=== PATIENT | male | born 1960 | race Caucasian/White ===

== ENCOUNTER 2024-09-10 06:50 | Observation (INO) ==
--- NOTE | 2024-07-16 11:00 | PAT Medication Instructions ---
Medication Instructions Date of Service July 16, 2024 Home Medications amlodipine 10 mg tablet 10 mg PO QAM aspirin 81 mg tablet,delayed release (Aspir-) 81 mg PO QAM lisinopril 40 mg tablet 40 mg PO QAM metformin 500 mg tablet 1,000 mg PO QAM metoprolol succinate 50 mg tablet,extended release 24 hr 75 mg PO QAM multivitamin 1 tab PO QAM acetaminophen 500 mg tablet 1,000 mg PO BID atorvastatin 20 mg tablet 20 mg PO UD empagliflozin 10 mg tablet (Jardiance) 10 mg PO QAM furosemide 20 mg tablet 20 mg PO UD STOP 3 days before surgery empagliflozin 10 mg tablet (Jardiance) 10 mg PO QAM Continue as directed atorvastatin 20 mg tablet 20 mg PO UD ASK your prescriber and surgeon aspirin 81 mg tablet,delayed release (Aspir-) 81 mg PO QAM DO NOT take the morning of surgery lisinopril 40 mg tablet 40 mg PO QAM metformin 500 mg tablet 1,000 mg PO QAM multivitamin 1 tab PO QAM furosemide 20 mg tablet 20 mg PO UD Take morning of surgery With a small sip of water, OTHERWISE NOTHING TO EAT OR DRINK AFTER MIDNIGHT: amlodipine 10 mg tablet 10 mg PO QAM metoprolol succinate 50 mg tablet,extended release 24 hr 75 mg PO QAM acetaminophen 500 mg tablet 1,000 mg PO BID Take evening before surgery acetaminophen 500 mg tablet 1,000 mg PO BID Other Notes If you have any questions please call us at [phone] or [phone] or [phone] or [phone]
--- NOTE | 2024-07-26 12:49 | Anesthesiology Consultation ---
Date of Service July 26, 2024 Assessment & Plan (1) Encounter for pre-operative examination: - PCP clearance regarding creatinine elevation at 1.4. Optimization form to be sent to Dr. Jemal Miller. - facial hair: patient states is agreeable to trimming young, he notes will be done playing avocadostore at local half-way facilities/for grandchildren by surgery date. - Outpatient joint assessment: Patient is currently scheduled for inpatient pathway. If re-evaluated and patient/surgeon requests outpatient pathway, patient is not ideal candidate for outpatient joint program from anesthesia standpoint. Chart Review Chart Review: Pending: Refer to Additional Notes / Consult section and Patient seen in Pre Admission Testing Teaching & Discussion Pre-Anesthesia Teaching/Discussion Notes: Instructed NPO after midnight before surgery, except medications with 15 cc of water. Medication instructions provided according to the PAT guidelines. History Surgery Operation Date: 09/10/24 12:10 Proposed Procedures p Right Reverse Total Shoulder Arthroplasty - Ian Swain, Height/Weight Height: 5 ft 8 in Weight: 126.2 kg Allergies Allergy/AdvReac Type Severity Reaction Status Date / Time No Known Allergies Allergy Verified 10/29/22 07:34 Medications Home Medications Medication Instructions Recorded Confirmed Last Taken amlodipine 10 mg tablet 10 mg PO QAM 09/15/19 07/15/24 10/17/19 aspirin 81 mg tablet,delayed 81 mg PO QAM 09/15/19 07/15/24 10/17/19 release (Aspir-) lisinopril 40 mg tablet 40 mg PO QAM 09/15/19 07/15/24 10/17/19 metformin 500 mg tablet 1,000 mg PO QAM 09/15/19 07/15/24 10/17/19 metoprolol succinate 50 mg 75 mg PO QAM 09/15/19 07/15/24 10/17/19 tablet,extended release 24 hr multivitamin 1 tab PO QAM 09/15/19 07/15/24 10/17/19 acetaminophen 500 mg tablet 1,000 mg PO BID 10/29/22 07/15/24 Unknown atorvastatin 20 mg tablet 20 mg PO UD 07/15/24 07/15/24 Unknown empagliflozin 10 mg tablet 10 mg PO QAM 07/15/24 07/15/24 Unknown (Jardiance) furosemide 20 mg tablet 20 mg PO UD 07/15/24 07/15/24 Unknown Past Medical History Medical History (Updated 07/26/24 @ 12:55 by Britney Foster PA-C) Aortic aneurysm hx- s/p repair 12/2022 CAD (coronary artery disease) x 2 stents 12/2022 Dyslipidemia Hypertension controlled, stable per pt Kidney stones Hx, passed without intervention Morbid obesity Osteoarthritis Prediabetes Renal cyst monitoring Sleep apnea CPAP (non-compliant) Patient denies h/o stroke, seizures, heart failure, blood clots/DVTs or blood transfusions. Exercise / Class Metabolic Activity II 4-5 Yardwork/Stairs/Walk up hill (denies chest discomfort or shortness of breath walking up a hill) Past Family History Family History Mother Diabetes Past Surgical History Surgical History History of cataract surgery B/L History of colonoscopy History of tonsillectomy Hx of aortic aneurysm repair (12/2022) Katerine Moran Hx of cardiac catheterization (12/2022) x 2 stents; AMRIK Moran --follows w/ Dr Figueroa Hx of shoulder surgery Right RCR Past Anesthesia History No Hx of Anesthesia Complications and No Family Hx of Anesthesia Complications History of PONV No Hx of PONV and No Hx of Motion Sickness Social History Smoking Status: Never smoker tobacco type: smokeless tobacco Do You Dip or Chew Tobacco: Yes (advised none DOS) Hx Alcohol Use: Yes Alcohol type: beer alcohol intake frequency: a few times a month Hx Substance Use: No substance use type: does not use Review of Systems Patient denies chest pain, shortness of breath, dyspnea on exertion, reflux, fever, chills, cough, wheezing, or palpitations. Physical Exam Vital Signs Vitals BP 146/89 P 68 TEMP 98.1 SP02 94% on RA RESP 18 Physical Patient resting comfortably in chair in no acute distress, alert and oriented, responding appropriately throughout visit Full cervical extension range of motion without pain TMD 3.5 finger breadths Mallampati Score 3 Dentition: intact, denies chipped or loose teeth, caps/crowns, implants or bridges Lungs: normal respiratory effort. Good air movement, clear throughout to auscultation, no adventitious breath sounds Cardiac: regular rate and rhythm, no murmurs noted Carotid arteries: negative bruit bilat Lab Results Anesthesia Preop Results Results Anesthesia Widget: WBC 9.82 K/ul (4.8-10.8) 07/26/24 Hgb 14.4 g/dl (14.0-18.0) 07/26/24 Hct 43.1 % (42.0-52.0) 07/26/24 Plt 228 K/uL (130-400) 07/26/24 Na 140 mmol/L (136-145) 07/26/24 K 4.1 mmol/L (3.5-5.1) 07/26/24 Cl 105 mmol/L (98-107) 07/26/24 CO2 27 mmol/L (21-32) 07/26/24 BUN 24 mg/dl (6-23) H 07/26/24 Creat 1.41 mg/dl (0.6-1.4) H 07/26/24 Glucose Level 111 mg/dl (70-99(Fasting)) H 07/26/24 PT 10.8 Seconds (9.0-12.0) 07/26/24 PTT 27 Seconds (21-31) 07/26/24 INR 1.0 (0.9-1.1) 07/26/24 HA1c 6.4 % (4.5-5.6) H 07/26/24 Blood Type O Positive 07/26/24 Antibody Screen NEGATIVE 07/26/24 Testing Electrocardiogram Date: 07/26/24 NSR, rate 62 bpm Minimal voltage criteria for LVH, may be normal variant Inferior infarct, age undetermined No significant change vs 11/05/22 EKG Echocardiogram Date: 06/16/23 EF 60-64% Normal LV wall motion Moderate cLVH Mild aortic valve regurgitation Evidence of prior aortic root replacement Mildly enlarged aortic root 4.0 cm Proximal ascending thoracic aorta mildly enlarged 4.3 cm Cardiac Catheterization Date: 12/04/22 Left main: no evidence of disease LAD: 80% lesion Cx: 80% lesion RCA: mildly diseased Other Testing Chest CT 02/16/24 A few stable lung nodules Redemonstration of postoperative changes from ascending aortic aneurysm repair with fluid collection around the graft. Overall caliber has minimally decreased when compared to 06/16/2023 CT Left renal high-density lesion
--- NOTE | 2024-09-08 17:03 | History & Physical Report ---
Date of Service September 08, 2024 Assessment & Plan (1) Rotator cuff tear arthropathy of right shoulder: We will proceed with a right reverse shoulder arthroplasty. Postoperatively he will be placed in a sling and kept overnight in the hospital for postop medical management. He plans to use energy physical therapy upon discharge. History of Present Illness Chief Complaint: Cuff tear arthropathy of the right shoulder. Primary Care Provider: Jemal Miller MD Titi is a pleasant 63-year-old male who underwent a rotator cuff repair at another institution in 2013. He initially did okay, but his shoulder has been much worse recently. He works as a liang. He was scheduled to have a reverse shoulder replacement by a year and a half ago, but he was found to have an aneurysm preoperatively. He has since had that addressed. Unfortunately, his shoulder continues to bother him. He is in better health. After failed conservative treatment, he has elected to proceed with a right reverse shoulder arthroplasty. Allergies Allergy/AdvReac Type Severity Reaction Status Date / Time No Known Allergies Allergy Verified 10/29/22 07:34 Home Medications Medication Instructions Recorded Confirmed Type amlodipine 10 mg tablet 10 mg PO QAM 09/15/19 07/15/24 History aspirin 81 mg tablet,delayed 81 mg PO QAM 09/15/19 07/15/24 History release (Aspir-) lisinopril 40 mg tablet 40 mg PO QAM 09/15/19 07/15/24 History metformin 500 mg tablet 1,000 mg PO QAM 09/15/19 07/15/24 History metoprolol succinate 50 mg 75 mg PO QAM 09/15/19 07/15/24 History tablet,extended release 24 hr multivitamin 1 tab PO QAM 09/15/19 07/15/24 History acetaminophen 500 mg tablet 1,000 mg PO BID 10/29/22 07/15/24 History atorvastatin 20 mg tablet 20 mg PO UD 07/15/24 07/15/24 History empagliflozin 10 mg tablet 10 mg PO QAM 07/15/24 07/15/24 History (Jardiance) furosemide 20 mg tablet 20 mg PO UD 07/15/24 07/15/24 History chlorthalidone 25 mg tablet 12.5 mg PO QAM 08/13/24 08/13/24 History Past Med/Surg History Problem List Rotator cuff tear arthropathy of right shoulder Encounter for pre-operative examination Medical History CAD (coronary artery disease) x 2 stents 12/2022 Dyslipidemia Prediabetes Renal cyst monitoring Aortic aneurysm hx- s/p repair 12/2022 Morbid obesity Osteoarthritis Kidney stones Hx, passed without intervention Hypertension controlled, stable per pt Sleep apnea CPAP (non-compliant) Surgical History Hx of cardiac catheterization (12/2022) x 2 stents; AMRIK Moran --follows w/ Dr Figueroa Hx of aortic aneurysm repair (12/2022) AMRIK Moran History of cataract surgery B/L Hx of shoulder surgery Right RCR History of colonoscopy History of tonsillectomy Family History Mother Diabetes Social History Smoking Status: Never smoker Tobacco Type: Smokeless Tobacco (Dip or Chew) Second Hand Exposure: No; Do You Dip or Chew Tobacco: Yes (advised none DOS); Tobacco Cessation Education Requested by Patient: No Hx Alcohol Use: Yes Alcohol type: beer Hx Substance Use: No Preferred Language: Monegasque Communication Ability: Effective [employer] Required: No Beliefs That Will Affect Care: None Current Living Situation: Family current occupation: [employer] Other Information That Helps Us Care for You: No Feels Safe at Home: Yes Safety Concerns: Feels Safe At This Time Assistive Devices: CPAP and Glasses Review of Systems All systems reviewed & are unremarkable except as noted in HPI & below. Physical Exam On physical examination of the right shoulder, he has decreased range of motion and weakness throughout.. Constitutional WD/WN, vitals as above Eyes PERRL, conjunctivae normal, anicteric sclerae ENMT external ear and nose normal, oropharynx normal Neck trachea midline, no thyromegaly Respiratory normal respiratory effort Cardiovascular RRR, no murmur, no edema Gastrointestinal (Abdomen) normal bowel sounds, soft, nontender, no hepatosplenomegaly Psychiatric A+Ox3, euthymic affect Results & Data Results & Data Laboratory Results . Diagnostic Findings X-rays of the right shoulder show advanced osteoarthritis with joint space narrowing, osteophyte formation, and [id number] articulation.. PG Care Time/CCT Total # of Minutes Spent Total Time Spent with Patient: Total time spent is greater than 50% in coordination of care (as documented) at patient's floor/unit and/or counseling patient: Coding Level of Care Code None Diagnoses Rotator cuff tear arthropathy of right shoulder M75.101; M12.811
[~2024-09-10 06:50] MED LIST: BUPIVACAINE 0.5 % 5 MG/1 ML PF 10ML VIAL ONE
[2024-09-10] MEDS ORDERED: fentaNYL citrate PF 100 MCG/2 ML VIAL ONE (08:12)
[2024-09-10] MEDS ORDERED: ONDANSETRON INJ 2 MG/ML 2 ML VIAL ONE (08:12)
[2024-09-10] MEDS ORDERED: MIDAZOLAM HCL 1 MG/ML 2ML VIAL ONE (08:12)
[2024-09-10] MEDS ORDERED: PROPOFOL IV EMULSION 10 MG/ML 20 ML VIAL IV ONE (08:12)
[2024-09-10] MEDS ORDERED: DEXAMETHASONE SOD INJ 4 MG/ML VIAL ONE (08:12)
[2024-09-10] MEDS: ACETAMINOPHEN 500 MG TAB PO SCH ×2 (08:12→20:17)
[2024-09-10] MEDS ORDERED: LIDOCAINE 2% 2 ML VIAL/AMP(20MG/ML) INFIL ONE (08:13)
[2024-09-10] MEDS: GABAPENTIN 300 MG CAP PO SCH (08:13)
[2024-09-10] MEDS: FAMOTIDINE 20 MG TAB PO SCH (08:13)
--- NOTE | 2024-09-10 08:20 | History & Physical Bridge Note ---
Date of Service September 10, 2024 History & Physical Bridge Note I have examined the patient, reviewed the History & Physical and in the interval since the performance of the History & Physical I have noted the following changes of clinical significance: no changes noted
[2024-09-10] MEDS: dexAMETHasone**PF** 10 MG/ML VIAL IV SCH (08:27)
[2024-09-10] MEDS ORDERED: ATROPINE SULFATE 0.1 MG/ML 10ML SYR IV PRN (08:34)
[2024-09-10] MEDS ORDERED: ePHEDrine sulfate 50 MG/ML AMP IV PRN (08:34)
[2024-09-10] MEDS ORDERED: HYDROmorphone INJ 1 MG/ML SYRINGE IV PRN (08:34)
[2024-09-10] MEDS ORDERED: fentaNYL citrate PF 100 MCG/2 ML VIAL IV PRN (08:34)
[2024-09-10] MEDS ORDERED: ONDANSETRON INJ 2 MG/ML 2 ML VIAL IV PRN ×2 (08:34→12:54)
[2024-09-10] MEDS: SODIUM CHLORIDE 0.9% 1,000 ML IV SCH (08:54)
[2024-09-10] MEDS: TRANEXAMIC ACID 1,000 MG **IV Pre-op IV SCH (09:02)
[2024-09-10] MEDS: ceFAZolin 2000MG 2,000 MG/15 ML SYR IV SCH ×2 (09:12→16:45)
[2024-09-10] MEDS: LR 60ML/HR IV SCH (09:13)
[2024-09-10] MEDS: LR 15ML/HR IV SCH (09:13)
[2024-09-10] MEDS ORDERED: ePHEDrine sulfate 50 MG/5 ML SYR ONE (09:38)
[2024-09-10] MEDS: ROPIV 0.5% 246mg, Ketorolac 30mg, EPINEPHrine 0.5mg in NSS INFIL SCH (10:20)
[2024-09-10] MEDS: ORTHO JOINT ANESTHETIC ONE (10:20)
[2024-09-10] MEDS: TRANEXAMIC ACID 1,000 MG **IV Intra-op IV SCH (10:32)
[2024-09-10] MEDS ORDERED: SUGAMMADEX SODIUM 200 MG/2 ML VIAL IV ONE (10:33)
--- NOTE | 2024-09-10 10:45 | Operative Report ---
PG Post Operative Report Pre & Post Diagnosis Operation Date: 09/10/24 09:00 Pre-Op Diagnosis: Cuff tear arthropathy of the right shoulder with tendinopathy long head of biceps tendon Post-Op Diagnosis: Cuff tear arthropathy of the right shoulder with tendinopathy long head of the biceps tendon I identified the patient and participated in the time-out.: Yes Procedure Operation Date: 09/10/24 09:00 Actual Procedures p Right Reverse Total Shoulder Arthroplasty(Right) with open biceps tenodesis as a distinct and separate procedure (modifier 59)- Ian Swain DO Surgeon Ian Swain DO Skip Miner Blasting None Estimated Blood Loss 200 Findings Consistent with Post-Op Diagnosis Specimens Right humeral head Description of Procedure A CPT code modifier 59: The long head of the biceps tendon was enlarged and inflamed consistent with tendinopathy. A tenodesis was opted. This was a separate and distinct portion of the procedure. For these reasons, a CPT code modifier 59 will be added to this case. Implants used: I used a [employer] Comprehensive reverse total shoulder arthroplasty system with a size 14 press fit micro humeral stem, a +3 offset humeral tray and a standard humeral bearing, a 25 mm large augment baseplate with a 6.5 mm central screw and superior and inferior locking screws, and a size 40 mm eccentric glenosphere. Titi arrived at [facility] for the above procedure. He was seen in the preoperative holding area and the operative extremity was identified and signed. He was given a preoperative antibiotic, TXA, and an interscalene nerve block. He was taken back to the operating room, laid on table in supine position, and put under general anesthesia. He was then put into the beachchair position. The shoulder was then prepped and draped in sterile fashion. A timeout was done and the patient and the operative extremity was properly identified. A deltopectoral approach was used. Dissection was taken down through the fascia and the deltoid was retracted laterally and the conjoined tendon was retracted medially. The anterior shoulder was exposed. The biceps groove was opened up and the biceps tendon was examined extensively. The biceps tendon demonstrated enlargement and inflammatory changes consistent with longstanding inflammation in the context of osteoarthritis and cuff arthropathy. The long head of the biceps tendon was then tenodesed to the upper border of the pectoralis major. This was a separate and distinct portion of the procedure. The subscapularis was then directly released off the lesser tuberosity with a peel technique. The inferior capsule was released and the humeral head was dislocated. A canal finding reamer was sent down the center of the humeral canal. Sequential reaming up to a size 14 reamer was done. Off that reamer, a proximal humeral resection guide was placed. The proximal humerus was resected at 135 of inclination and 25 of retroversion. Osteophytes were then removed and the glenoid was exposed. Time was spent doing a complete capsular and labral release. A [employer]im[employer] Signature One guide was then attached onto the anterior rim of the glenoid. A 3.2 mm Steinmann pin was then placed in the reverse total shoulder arthroplasty hole. The glenoid baseplate was then reamed. The final size 25 mm large augment baseplate was then impacted in the place. A 6.5 mm central screw was then placed followed by superior and inferior locking screws. A 40 mm eccentric glenosphere was then impacted into place. Surrounding soft tissues were then injected with 100 cc an orthopedic pain control cocktail. The proximal humerus was then exposed. Sequential broaching of the humerus up to a size 14 broach was done. Off that broach a +3 offset humeral tray was trialed. The shoulder was then reduced, brought through a full range of motion, and felt to be stable. The shoulder was then dislocated and the broach was removed. The final size 14 micro press-fit humeral stem was then impacted into place. A standard humeral bearing was then snapped onto a +3 offset humeral tray. The humeral tray was then impacted onto the humeral stem. The shoulder was once again reduced, brought through a full range of motion, and felt to be stable. The subscapularis was poor quality and unable to be repaired. A dilute betadyne lavage was then done for 3 minutes. The joint was then irrigated with normal saline solution. Hemostasis was obtained. The interval was closed with 2-0 Vicryl suture. The skin was then closed with 2-0 Vicryl and joyce. A Silverlon dressing was placed and the arm was rested in a regular arm sling. He was then extubated and transferred to a hospital bed. He taken to the postanesthesia care unit in stable condition. He tolerated the procedure well. I attest to the content of the Intraoperative Record and any orders documented therein. Any exceptions are noted below.
--- NOTE | 2024-09-10 11:29 | XRay Report ---
XR shoulder RT min 2V routine HISTORY: 63 years-old Male Post shoulder surgery right shoulder arthroplasty COMPARISON: 11/05/2022 TECHNIQUE: 2 views of the right shoulder FINDINGS: Satisfactory alignment of the reverse right shoulder arthroplasty. Overlying skin joyce with expect ed postoperative soft tissue swelling and deep tissue air. No acute fracture or unexpected opaque for eign body. IMPRESSION: Reverse right shoulder arthroplasty with expected postoperative changes. ACT 112: Negative or not required by law. The above report was generated using voice recognition software. It may contain grammatical, syntax o r spelling errors. Electronically signed by: Omar Walls M.D. 09/10/2024 11:27 AM
[2024-09-10] MEDS ORDERED: METOCLOPRAMIDE HCL INJ 5 MG/ML 2 ML VIAL IV PRN (12:54)
[2024-09-10] MEDS ORDERED: MAGNESIUM HYDROXIDE SUSP 30 ML UDC PO PRN (12:54)
[2024-09-10] MEDS ORDERED: NALOXONE HCL 0.4 MG/1 ML VIAL/CARP IV PRN (12:54)
[2024-09-10] MEDS ORDERED: HYDROmorphone INJ 0.5 MG/0.5 ML SYR IV PRN (12:54)
[2024-09-10] MEDS ORDERED: oxyCODONE HCL IR 5 MG TAB (IMMEDIATE RELEASE) PO PRN (12:54)
[2024-09-10] MEDS ORDERED: bisacodyL 10 MG SUPP PR PRN (12:54)
--- NOTE | 2024-09-10 12:57 | Anesthesiology Progress Note ---
Date of Service September 10, 2024 Anesthesia Post Procedure Vital Signs Vital Signs: Temp Pulse Resp BP Pulse Ox O2 Del Method O2 Flow Rate 09/10/24 12:35 59 L 20 127/65 93 Nasal Cannula 3 09/10/24 12:25 57 L 21 127/68 93 Nasal Cannula 3 09/10/24 12:15 60 20 120/58 L 93 Nasal Cannula 3 09/10/24 12:05 59 L 22 135/65 94 Nasal Cannula 3 09/10/24 11:55 36.8 C 57 L 22 132/65 92 Nasal Cannula 3 09/10/24 11:45 58 L 18 136/70 92 Nasal Cannula 3 09/10/24 11:35 58 L 18 140/73 92 Nasal Cannula 3 09/10/24 11:25 57 L 18 147/73 H 93 Nasal Cannula 3 09/10/24 11:15 36.8 C 62 20 144/77 H 95 Nasal Cannula 3 09/10/24 11:05 61 14 173/93 H 95 Oxymask 4 09/10/24 10:55 36 C L 70 12 175/88 H 95 Oxymask 6 09/10/24 07:35 36.9 C 58 L 18 182/99 H 96 Room Air Pain Intensity Right Shoulder: Pain Intensity: 4 Transfer of Care Handoff Completed per policy Notes Mental Status: alert / awake / arousable and participated in evaluation Patient Amnestic to Procedure: Yes Nausea / Vomiting: improving with treatment Pain: adequately controlled and improving with treatment Airway Patency, RR, SpO2: stable & adequate BP & HR: stable & adequate Hydration State: stable & adequate Anesthetic Complications: no major complications apparent and Pt Satisfied with anesthetic care Notes: Pt interscalene block is functioning well. Arm in sling
[2024-09-10] MEDS: KETOROLAC 30 MG/ML VIAL IV SCH (14:17)
[2024-09-10] MEDS: SENNA 8.6 MG TAB PO SCH (20:18)
[2024-09-10] MEDS: DOCUSATE SODIUM 100 MG CAP PO SCH (20:18)
[2024-09-11 07:50] VITALS: BP 161/84; PULSE 58; RESP 18; TEMP 97.3; O2SAT 93
[2024-09-11] MEDS: CHLORTHALIDONE 25 MG TAB PO SCH (08:11)
[2024-09-11] MEDS: metFORMIN HCL 500 MG TAB PO SCH (08:12)
[2024-09-11] MEDS: amLODIPine BESYLATE 5 MG TAB PO SCH (08:13)
[2024-09-11] MEDS: MULTIVITAMIN TAB PO SCH (08:13)
[2024-09-11] MEDS: lisinopril 40 MG TAB PO SCH (08:13)
[2024-09-11] MEDS: dexAMETHasone 4 MG TAB PO SCH (08:14)
[2024-09-11] MEDS: EMPAGLIFLOZIN 10 MG TAB PO SCH (08:14)
[2024-09-11] MEDS: ASPIRIN 81 MG ECTAB PO SCH (08:14)
[2024-09-11] MEDS: METOPROLOL SUCC 25MG EXT REL TAB PO SCH (08:14)
--- NOTE | 2024-09-11 09:59 | Discharge Summary ---
Date of Service September 11, 2024 Admission HPI (Per Admitting) Titi is a pleasant 63-year-old male who underwent a rotator cuff repair at another institution in 2013. He initially did okay, but his shoulder has been much worse recently. He works as a loera. He was scheduled to have a reverse shoulder replacement by a year and a half ago, but he was found to have an aneurysm preoperatively. He has since had that addressed. Unfortunately, his shoulder continues to bother him. He is in better health. After failed conservative treatment, he has elected to proceed with a right reverse shoulder arthroplasty. Admission Exam (Per Admitting) On physical examination of the right shoulder, he has decreased range of motion and weakness throughout.. Principal Diagnosis Same as "Discharge Diagnosis" noted below under Discharge Instructions. Discharge Exam On physical exam of the right shoulder. The dressing is clean and dry. He is wearing his sling as instructed. He has active motion of his hand and his wrist.. Discharge Data Procedures Performed Operation Date: 09/10/24 09:00 Actual Procedures p Right Reverse Total Shoulder Arthroplasty(Right) - Ian Swain DO Ordered Studies 09/10/24 09:11 US - OR guided needle placemen Routine Hospital Course (1) Status post reverse total replacement of right shoulder: On September 10, 2024 Titi arrived at [facility] and underwent a right reverse shoulder replacement without complication. He had a general anesthetic and a right interscalene nerve block. Postoperatively he was placed in a sling and transferred to the general orthopedic floors. His hospital course was uneventful. On postop day #1, his vital signs were stable and his pain was well-controlled. He was able to participate well with physical therapy doing ambulation and range of motion exercises. He was then discharged to home. He will follow-up orthopedics in 2 weeks. PG Care Time/CCT Total # of Minutes Spent Total Time Spent with Patient: Total time spent is greater than 50% in coordination of care (as documented) at patient's floor/unit and/or counseling patient: Discharge Plan Discharge Items Patient Disposition: Home - Self-Care Reason For Visit: Arthritis Right Shoulder Discharge Diagnosis: Right reverse shoulder replacement Activity: Per Instructions section Non-emergency contact: Surgeon Call non-emergency contact if: your wound has increased redness and your wound has increased drainage Follow-up/Referrals: Jemal Miller MD [Primary Care Provider] - Diet: Regular Addtl Attending Provider Instructions: Activity and Therapy Recommendations: * If you are using [facility] then therapy will be provided at your home until they feel you have accomplished all of your goals. * If you are using [facility] then Physical Therapy will be provided until they feel you are ready to start Outpatient Physical Therapy. * If you are not using home therapy then Outpatient Physical Therapy should start about 3-5 days from your day of surgery. Therapy will last about 8-12 weeks * Wear your sling for 3 weeks, unless otherwise instructed. You may remove your sling to shower and to dress, but otherwise, you should be in your sling at all times, including while sleeping * The shoulder replacement is very stable and you can use your hand while in the sling * You were shown a series of exercises in the hospital. Do these exercises daily including the exercises you were shown in physical therapy. Medications: * Narcotic You will likely be sent home from the hospital with a prescription for the narcotic pain medication that worked best throughout your stay. * Cefadroxil -take the antibiotic twice a day for 10 days to help prevent infection. * Other medications may be prescribed for specific circumstances. If you have any questions, please call the office at . * Resume previous home medications unless otherwise instructed Dressing Care: Leave the Silverlon dressing in place for 7 days. After 7 days you may remove the dressing. If the incision is not draining then you may leave the joyce open to air. If there is a little bit of drainage or if the joyce are getting stuck on your clothing then cover the incision with a dry dressing. The joyce will be removed at your 2 week follow-up appointment. Showering: You may shower with the Silverlon dressing in place. Do not let the shower spray hit the dressing directly. Pat the Silverlon dressing dry. If the dressing becomes wet underneath, then simply remove the dressing. Keep the incision dry until you are 7 days out from the day of surgery. After 7 days you may remove the Silverlon dressing and shower with the joyce exposed. Let soapy water run over the joyce and pat them dry. Do not scrub or soak the incision. Diet: You may resume your previous diet. Things To Watch For: * Drainage from the incision site that occurs more than one week after your surgery. * Increased redness at the incision site. * Fever above 102 degrees Fahrenheit. * Unusual chest pain or shortness of breath. * Call [facility] at with any of the above problems Follow-Up Visit: Follow-up with Dr. Swain's office 2-3 weeks after your day of surgery. We will remove your joyce and answer any questions. If you have any additional questions or concerns, Dr Swain is usually in the office at the same time and will be available An appointment was probably scheduled when you signed-up for surgery in the office. If you have any questions call More detailed instructions as well as Frequently Asked Questions were provided in a folder by our office when you signed-up for surgery. Please review these instructions when you get home. If you have any further questions or concerns, please feel free to call the office at [phone] Pending Studies at Discharge: No Stand-Alone Forms: My [facility], Pain - Opioid Pain Management, Smoking Cessation Medications and DC Order Prescriptions: New oxycodone 5 mg tablet 5 mg PO Q6H PRN (Reason: pain) Qty: 30 0RF cefadroxil 500 mg capsule 500 mg PO BID 10 Days Qty: 20 0RF Continued multivitamin Tablet 1 tab PO QAM metformin 500 mg Tablet 1,000 mg PO QAM metoprolol succinate 50 mg Tablet Extended Release 24 Hr 75 mg PO QAM aspirin [Aspir-81] 81 mg Tablet,Delayed Release (Dr/Ec) 81 mg PO QAM amlodipine 10 mg Tablet 10 mg PO QAM lisinopril 40 mg Tablet 40 mg PO QAM acetaminophen 500 mg Tablet 1,000 mg PO BID atorvastatin 20 mg Tablet 20 mg PO UD Rx Instructions: MON, WED, FRI- AM furosemide 20 mg Tablet 20 mg PO UD Rx Instructions: mon, wed, fri- AM Jardiance 10 mg Tablet 10 mg PO QAM chlorthalidone 25 mg Tablet 12.5 mg PO QAM Rx Instructions: Takes 1/2 tablet of the 25mg daily Discharge Orders: Discharge Order (Routine); Ordered 09/11/24 Ordered By: Ian Mg/Other Patient Handouts: Shoulder Replace Home Recovery Admission Data Admit Date/Time: 09/10/24 10:48 Attending Provider: Ian Swain Admit Provider: Ian Swain Primary Care Provider: Jemal Miller Other Interventions: Discharge Summary Assessment (RN) Last Done: 09/11/24 09:37
--- NOTE | 2024-09-11 09:59 | Orthopedic Progress Note ---
Date of Service September 11, 2024 Assessment & Plan (1) Status post reverse total replacement of right shoulder: Overall he is doing fairly well. He is not having much pain in the right shoulder. He will be seen by physical therapy today for ambulation and range of motion exercises. He can be discharged home later today. He will follow-up with orthopedics in 2 weeks. Davion Walls was seen and examined at bedside this morning. Overall he is doing fa irly well. He is not having much pain in the right shoulder. He was able to get some sleep last night. He has no complaints.. Review of Systems All systems reviewed & are unremarkable except as noted in HPI & below. Physical Exam On physical exam of the right shoulder. The dressing is clean and dry. He is wearing his sling as instructed. He has active motion of his hand and his wrist.. Results & Data Results & Data Laboratory Results . Diagnostic Findings Postoperative x-rays of the right shoulder show the prosthesis to be in anatomic alignment without any evidence of fracture complication, or loosening.. PG Care Time/CCT Total # of Minutes Spent Total Time Spent with Patient: Total time spent is greater than 50% in coordination of care (as documented) at patient's floor/unit and/or counseling patient: Coding Level of Care Code 94436 Post Operative Follow-Up Diagnoses Status post reverse total replacement of right shoulder Z96.611
--- OUTSIDE RECORDS SUMMARY | 2024-09-12 06:35 | External Medical Summary | Summary of Care ---
Author Name Unknown Organization [facility] Address [address] [place] [address] Phone [phone] Care Team Providers Care Jewelry Sales Name Role Phone Angela MCFARLANE MD, Jemal Li Primary Care Provider [phone] Reason for Visit * Reason Onset Date Comments FYI 08/24/2024 Encounter Details Date Type Department Care Team (Late st Contact Info) Description 08/24/2024 Telephone Nephrology, [address] [place] [address] Services, Scheduling [address] [place] [address] Allergies No known active allergiesdocumented as of this encounter (statuses as of 09/07/2024) Medications MULTIVITAMIN/IA NERAL FORMULA OR TABS 1 TABLET DAILY 30 0 09/09/2002 Active ASPIRIN 81 MG PO TABS Take 1 Tablet by mouth in the morning. Active Acetaminophen 500 MG Oral Tablet Take 2 Tablets by mouth in the morning and 2 Tablets in the evening. Use for pain in shoulder.. Active metFORMIN HCl ER 500 MG Oral Tablet Extended Release 24 Hour (Glucophage XR) Take 2 Tablets by mouth daily with breakfast. 180 Tablet 2 04/16/2024 Active amLODIPine Besylate 10 MG Oral Tablet (Norvasc)Indica tions:HTN, goal below 140/90 TAKE 1 TABLET BY MOUTH EVERY DAY IN THE MORNING 90 Tablet 2 04/30/2024 Active Lisinopril 40 MG Oral Tablet TAKE 1 TABLET BY MOUTH EVERY DAY IN THE MORNING 90 Tablet 2 04/30/2024 Active Empagliflozin 10 MG Oral Tablet (Jardiance) Take 1 Tablet by mouth in the morning. 90 Tablet 3 06/24/2024 Active Furosemide 20 MG Oral Tablet (Lasix)Indicati ons:HTN, goal below 140/90,Dyslipid emia, goal LDL below 70,S/P CABG x 2,S/P ascending aortic aneurysm repair Take 1 Tablet by mouth once a day on Friday, Friday, and Friday only. 36 Tablet 5 06/25/2024 Active Atorvastatin Calcium 20 MG Oral Tablet (Lipitor) Fri 30 Tablet 5 07/08/2024 Active Metoprolol Succinate ER 50 MG Oral Tablet Extended Release 24 Hour (toPROL XL)Indications: HTN, goal below 140/90 TAKE 1.5 TABLETS BY MOUTH IN THE MORNING 135 Tablet 3 07/13/2024 Active Chlorthalidone 25 MG Oral Tablet (Hygroton) Take 0.5 Tablets by mouth in the morning. 30 Tablet 5 08/06/2024 Active documented as of this encounter (statuses as of 09/07/2024) Active Problems Problem Noted Date Diagnosed Date Prediabetes 12/15/2023 Overview: Per Prediabetes protocol 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 S/P ascending aortic aneurysm repair 12/14/2022 Coronary artery disease invo lving [place] coronary artery of [place] heart with angina pectoris 12/09/2022 Impaired fasting glucose 11/27/2022 Nontraumatic tear of right rotator cuff 11/27/19 23 Ascending aortic aneurysm 11/27/2022 Body mass index (BMI) of 40.0 to 44.9 in adult 0 02/13/2021 Overview: Per Obesity protocol Morbid obesity due to excess calories 04/24/2020 Mild obstructive sleep apnea 11/19/2013 Overview (05/18/2015): CPAP 10 cw2013 Titration PSG -- CPAP 10 11/2013 PSG -- AHI 12 [facility] BMI 35-39 ISOLATED (SEE ACTUAL BMI) 01/01/2010 Overview (01/01/2010): Per Obesity Taxonomy CALCULUS OF KIDNEY-HX 09/09/2002 HTN, goal below 140/90 12/02/2000 documented as of this encounter (statuses as of 09/07/2024) Resolved Problems Problem Noted Date Diagnosed Date Resolved Date Diabetes mellitus 12/14/2022 10/09/2023 Tear of right rotator cuff 11/08/2022 0 11/08/2022 Prediabetes 05/19/2018 12/18/2022 Overview: Per Prediabetes protocol #1 - ADVANCE DIRECTIVE INFORMATION 11/26/2005 08/09/2024 Overview (11/26/2005): No, Advance Directive brochure given to patient. OBESITY, UNSPECIFIED 010 Overview (01/01/2010): Per Obesity Taxonomy documented as of this encounter (statuses as of 09/07/2024) Immunizations Name Administration Dates Next Due Seasonal Influenza Vac., MDV , IM, 0.5 mL (Fluzone) 09/21/2014,09/21/2013,09/17/2012 Seasonal Influenza, PF, 6 M & above, IM , (FluLaval or Fluzone) 06/12/2023,08/24/2020,07/23/2019,2017 Seasonal Influenza, Quadriva lent, No Preserve, IM 06/23/2017,08/26/2016,07/04/2015 TD - Tetanus/Diptheria (ADULT) 10/06/1980 TD, Preservative Free 12/23/2017 TDAP, Age 7 and older, IM (Adacel) 10/08/2007 Zoster Vaccine Recombinant (Shingrix) 04/24/2020 ,07/23/2019 documented as of this encounter Social History Tobacco Use Types Packs/Day Years Used Date Smoking Tobacco: Never Smokeless Tobacco: Current Snuff Alcohol Use Standard Drinks/Week Comments Yes 0 (1 standard drink = 0.6 oz pur e alcohol) 4-6 beers a weeks PHQ-2 Answer Date Recorded PHQ Adult Total Score 0 06/12/2023 Hunger Vital Sign Answer Date Recorded Within the past 12 months, y ou worried that your food would run out before you got the money to buy more. Never true 12/26/19 23 Within the past 12 months, t he food you bought just didn't last and you didn't have money to get more. Never true 12/25/2022 Sex and Gender Information Value Date Recorded Sex Assigned at Not on file Legal Sex Male 7:10 AM EST Gender Identity Not on file Sexual Orientation Not on file documented as of this encounter Functional Status * Are you deaf or do you have serious difficulty hearing? Answer Date of Assessment Author No 12/09/2022 6:10 PM Perla Arce RN * Are you blind or do you have serious difficulty seeing, even when wearing glasses? Answer Date of Assessment Author No 12/09/2022 6:10 PM Perla Arce RN * Do you have serious difficulty walking or climbing stairs? (5 years old or older) Answer Date of Assessment Author No 12/09/2022 6:10 PM Perla Arce RN * Do you have difficulty dressing or bathing? (5 years old or older) Answer Date of Assessment Author No 12/09/2022 6:10 PM Perla Arce RN * Because of a physical, mental, or emotional condition, do you have difficulty doing errands alone such as visiting a doctors office or shopping? (15 years old or older) Answer Date of Assessment Author No 12/09/2022 6:10 PM Perla Arce RN documented as of this encounter Mental Status * Because of a physical, mental, or emotional condition, do you have serious difficulty concentrating, remembering, or making decisions? (5 years old or older) Answer Entry Date Author No 12/09/2022 6:10 PM Perla Arce RN documented in this encounter Miscellaneous Notes * Telephone Encounter - Flavia Erwin MD - 09/07/2024 4:16 PM EST 3 day BP log shows ongoing hypertension and suggests white coate HTN as well Pt has BP acceptable for surgery in my opinion based on home readings. Pls remind him/team to hold jardiance day before day of and day after surgery Pls have him repeat 3 day log one week after surgery Neph nurse pls update Dr Swain * Telephone Encounter - Chayo Espino LPN - 09/07/2024 2:23 PM EST Pt is scheduled with Dr Swain for surgery on shoulder 09/10/24 They are awaiting final clearance from 3 day logs MD please review and provide recommendations * Telephone Encounter - Helena Stern OSA - 09/07/2024 8:47 AM EST Janelle from [facility] on the line requesting a follow up regarding pre op clearances. Pt is set to have surgery on 09/10. Thank you! * Telephone Encounter - Chayo Espino LPN - 08/25/2024 8:53 AM EST Please review 3 day BP log 12 readings on a home cuff validated 07/24/23 Average 136/73 * Telephone Encounter - Stephanie Lara OSA - 08/24/2024 12:55 PM EST Pt called in his BP readings from the last 3 days. 08/21 1st morning 134/81 HR 60 2nd morning 134/77 HR 69 1st Evening 133/76 HR 67 2nd Evening 131/71 HR 65 08/[address] Morning 140/73 HR 65 2nd Morning 138/74 [address] Evening 141/73 HR 62 2nd Evening 138/73 HR 61 08/[address] Morning 142/73 HR 61 2nd Morning 140/70 HR 62 1st Evening 131/71 HR 68 2nd Evening 138/74 HR 66 documented in this encounter Plan of Treatment Upcoming Encounters Date Type Department Care Team (Late st Contact Info) Description 11/09/2024 8:00 AM EST Office Visit Nephrology, [facility] [address] [facility] [place] [address] Flavia Erwin MD [address] [facility] [place] [address] 12/14/2024 10:00 AM EDT Imaging Radiology [facility] [address] [facility] [place] [address] 12/24/2024 8:20 AM EDT Office Visit Family Practice [facility] [address] [facility] [place] [address] Jemal Miller III, MD [address] [facility] [place] [address] 12/30/2024 3:15 PM EDT Office Visit Urology [facility] [address] [place] [address] Oneil Ball MD [address] [place] [address] 01/27/2025 8:00 AM EDT Office Visit Cardiology, [facility] [address] [place] [address] Wilfrido Figueroa MD [address] [facility] [place] [address] Scheduled Procedures Name Priority Associated Diagnoses Date/Ti me COLONOSCOPY FLEXIBLE PROXIMAL DIAGNOSTIC Recall Screen for colon cancer Health Maintenance Due Date Last Done Comments Pneumococcal Vaccine: 65+ Years (1 of 2 - PCV) 1964 Cologuard 2003 Fecal Occult Blood Test 2003 Sigmoidoscopy 2003 COVID-19 Vaccine (2023- season) 2024 Influenza Vaccine (FLU shot) (#1) 2024 06/12/2023, 08/24/2020, 07/23/2019, Additional history exists Depression Screening 06/12/2024 06/12/2023 B-12 06/18/2025 06/18/2024, 05/06, 08/02/2022, Additional history exists HbA1c 07/26/2025 07/26/2024, 06/06, 12/05/2023, Additional history exists GFR 08/19/2025 08/19/2024, 07/07, 12/19/2023, Additional history exists Albumin/Creatinine Ratio 07/22/2027 024, 07/06/2024, 07/24/2023, Additional history exists DTap/Tdap Vaccines (3 - Td or Tdap) 12/24/2027 12/23/2017, 10/08/2007, 10/06/1980 Colonoscopy 09/19/2030 09/19/2020, 09/05, 12/19/2009 Colorectal Cancer Screening 09/19/2030 Zoster Vaccines Completed 04/24/2020, 07/23/2019 Diabetic Eye Exam Discontinued 02/08/2022, , 03/07/2020, Additional history exists Diabetic Foot Exam Discontinued 06/12/2023 HPV (Gardasil) Vaccine Aged Out No lo nger eligible based on patient's age to complete this topic Hepatitis B Vaccine Aged Out No longe r eligible based on patient's age to complete this topic MENINGOCOCCAL (MENACTRA/MENVEO) Aged Out No longer eligible based on patient's age to complete this topic documented as of this encounter Medical Devices Implanted Type Area Human Resources Project Coordinator Device Identifier Shelf Expiration Date Model / Serial / Lot 28 Mm X 30 Cm Gelweave Gelatin Impregnated Woven Vascular Prosthesis Implanted:Qty: 1 on 12/09/2022 [place]erto Rus[place] [facility] [place] N/A: Aorta [employer] : [id number] 03/05/2025 [id number] Suture Steel 6 B&S19 M654g - [id number] Implanted:Qty: 4 on 12/09/2022 by Filiberto Russo [place] [facility] [place]/A: Sternum JNJ : [employer] 09/04/2027 [id number] / / [id number] Suture Steel 6 B&S19 M654g - [id number] Implanted:Qty: 4 on 12/09/2022 by Filiberto Russo [place] [facility] [place]A: Sternum JNJ : [employer] 08/05/2027 M654G / / [id number] Marker Coronary - [id number] Implanted:Qty: 1 on 12/09/2022 by Filiberto Russo [place] [facility] [place]/A: Heart [employer] 09/04/2025 [facility] / / [id number] documented as of this encounter Advance Directives Documents on File Type Date Recorded Patient Public Address Systems Mechanic Expl anation Advance Directives and Living Will 12/11/2022 ADVANCE DIRECTIVE / LIVING WILL * Full Code (Latest Code Status on File) Date Activated Date Inactivated Comments 12/09/2022 1:10 PM 12/14/2022 2:25 PM This order re flects the patients wishes and were consensually agreed upon. Question Answer Comments Discussion of Advance Directives occurred with: Patient Healthcare Agents on File Name Relationship Healthcare Agent [facility] Cheikh Rosas Adult Child Health Care Agen t (per Health Care Power of Dining Service Inspector document) Tyler Rosas Adult Child Second Alternate Health Care Agent (per Health Care Power of Dining Service Inspector document) Care Teams Jewelry Sales Relationship Specialty Start Date End Date Jemal Miller III, MD [address] [facility] [place] [address] PCP - General 05/20/1996 documented as of this encounter
--- OUTSIDE RECORDS SUMMARY | 2024-09-12 06:35 | External Medical Summary | Summary of Care ---
Author Name Unknown Organization [facility] Address [address] [facility] [address] Phone [phone] Care Team Providers Care Home Performance Consultant Name Role Phone Angela MCFARLANE MD, John E Primary Care Provider [phone] Reason for Visit * Reason Onset Date Comments Advice 08/19/2024 Pre-op Clearance 08/19/2024 Encounter Details Date Type Department Care Team (Late st Contact Info) Description 08/19/2024 Telephone Family Practice [facility] [address] [place] [address] Jemal Miller III, MD 200 [place] [address] Advice; Pre-op Clearance Allergies No known active allergiesdocumented as of this encounter (statuses as of 08/21/2024) Medications MULTIVITAMIN/MT NERAL FORMULA OR TABS 1 TABLET DAILY [...] as of this encounter (statuses as of 08/21/2024) Active Problems Problem Noted Date Diagnosed Date Prediabetes 12/15/2023 Overview: Per Prediabetes protocol 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 S/P ascending aortic aneurysm repair 12/14/2022 Coronary artery disease invo lving [place] coronary artery of [place] heart with angina pectoris 12/09/2022 Impaired fasting [...] CPAP 10 11/2013 PSG -- AHI 12 [facility] BMI 35-39 ISOLATED (SEE ACTUAL BMI) 01/01/2010 Overview (01/01/2010): Per Obesity Taxonomy CALCULUS OF KIDNEY-HX 09/09/2002 HTN, goal below 140/90 12/02/2000 documented as of this encounter (statuses as of 08/21/2024) Resolved Problems Problem Noted Date Diagnosed Date Resolved Date Diabetes mellitus 12/14/2022 10/09/2023 Tear of right rotator cuff 11/08/2022 0 11/08/2022 Prediabetes 05/19/2018 12/18/2022 Overview: Per Prediabetes protocol #1 - ADVANCE DIRECTIVE INFORMATION 11/26/2005 08/09/2024 Overview (11/26/2005): No, Advance Directive brochure given to patient. OBESITY, UNSPECIFIED 010 Overview (01/01/2010): Per Obesity Taxonomy documented as of this encounter (statuses as of 08/21/2024) Immunizations Name Administration Dates Next Due Seasonal Influenza Vac., MDV , IM, 0.5 mL (Fluzone) 09/21/2014,09/21/2013,09/17/2012 Seasonal Influenza, PF, 6 M & above, IM , (FluLaval or Fluzone) 06/12/2023,08/24/2020,07/23/2019,2017 Seasonal Influenza, Quadriva lent, No Preserve, IM 06/23/2017,08/26/2016,07/04/2015 TD, Preservative Free 12/23/2017 TDAP, Age 5 [...] encounter Miscellaneous Notes * Telephone Encounter - Chayo Espino LPN - 08/20/2024 12:44 PM EST Pt is aware of test results Spoke with Pt he is working on 3 day BP log and it should be sent to our office 08/23/24 Will await results * Telephone Encounter - Chayo Espino LPN - 08/20/2024 12:44 PM EST ----- Message from Flavia Erwin MD sent at 08/20/2024 10:04 AM EST ----- Stable kidney labs; above previous baseline from spring and one year back but should be ok for shoulder surgery PROVIDED we get BP log to assess BP control. Any updates on log? * Telephone Encounter - Jemal Miller III, MD - 08/20/2024 8:32 AM EST If they will accept my information that Nephrology said he is good to go and that the empagliflozinbe held * Telephone Encounter - Jeaneth Noland RN - 08/19/2024 2:07 PM EST Pt is to have right total shoulder replacement with Dr. Swain on 09/10/24. Gilbert Dickson sent over pre-admission testing. Your note says "Has seen nephrology. OK for surgery. SGLT2 drugs need held for 3 days pre-op." Do you mean the Jardiance? Does pt know about holding med? Do you need to send a clearance note to Dr. Swain? Do you need to see pt? documented in this encounter Plan of Treatment Upcoming Encounters Date Type Department Care Team (Late st Contact Info) Description 11/09/2024 8:00 AM EST Office Visit Shay, Kaylee Stevens [address] [place] [address] Flavia Erwin MD 200 [facility] [place] [address] 12/14/2024 10:00 AM EDT Imaging Radiology [facility] [place] [address] 12/24/2024 8:20 AM EDT Office Visit Family Practice [facility] [address] [facility] [place] [address] Jemal Miller III, MD [address] [facility] [place] [address] 12/30/2024 3:15 PM EDT Office Visit Urology Jesse Vernon [address] [place] [address] Oneil Ball MD 27 [place] [address] 01/27/2025 8:00 AM EDT Office Visit Cardiology, [facility] [address] [place] [address] Wilfrido Figueroa MD 132 [facility] [place] [address] Scheduled Procedures Name Priority Associated Diagnoses Date/Ti me COLONOSCOPY FLEXIBLE PROXIMAL DIAGNOSTIC Recall Screen for colon cancer Health Maintenance Due Date Last Done Comments Pneumococcal Vaccine: 65+ Years (1 of 2 - PCV) 1964 Cologuard 2003 Fecal Occult Blood Test 2003 Sigmoidoscopy 2003 COVID-19 Vaccine ( season) 2024 Influenza Vaccine (FLU shot) (#1) [...] this encounter Medical Devices Implanted Type Area Medical Insurance Biller Device Identifier Shelf Expiration Date Model / Serial / Lot 28 Mm X 30 Cm Gelweave Gelatin Impregnated Woven Vascular Prosthesis Implanted:Qty: 1 on 12/09/2022 by Filiberto Russo MD at OR [facility] [place] [place] Graft N/A: Aorta [employer] : VASCUTEK [id number] 03/05/2025 [id number] / [id number] / [id number] Suture Steel 6 B&S19 M654g - [id number] Implanted:Qty: 4 on 12/09/2022 by Filiberto Russo MD at OR [facility] [place] [place] N/A: Sternum JNJ : [employer] 09/04/2027 M654G / / SPBBPK Suture Steel 6 B&S19 M654g - [id number] Implanted:Qty: 4 on 12/09/2022 by Filibetro Russo MD at OR [facility] [place] [place] N/A: Sternum JNJ : [employer] 08/05/2027 M654G / / SMBEEL Marker Coronary - [id number] Implanted:Qty: 1 on 12/09/2022 by Filiberto Russo MD at OR [facility] [place] [place] N/A: Heart [employer] 09/04/2025 [facility] / / [id number] documented as of this encounter Advance Directives Documents on File Type Date Recorded Patient Transplant Case Manager Expl anation Advance Directives and Living Will 12/11/2022 ADVANCE DIRECTIVE / LIVING WILL * Full Code (Latest Code Status on File) Date Activated Date Inactivated Comments 12/09/2022 1:10 PM 12/14/2022 2:25 PM This order re flects the patients wishes and were consensually agreed upon. Question Answer Comments Discussion of Advance Directives occurred with: Patient Healthcare Agents on File Name Relationship Healthcare Agent Relationshi p Communication Cheikh Rosas Adult Child Health Care Agen t (per Health Care Power of Laborer Cement Gun Placing document) Tyler Rosas Adult Child Second Alternate Health Care Agent (per Health Care Power of Laborer Cement Gun Placing document) Care Teams Home Performance Consultant Relationship Specialty Start Date End Date Jemal Miller III, MD 200 [place] [address] PCP - General 05/20/1996 documented as of this encounter
--- OUTSIDE RECORDS SUMMARY | 2024-09-12 06:35 | External Medical Summary | Summary of Care ---
Author Name Unknown Organization [facility] Address [address] [facility] [address] Phone [phone] Care Team Providers Care Health Care Facilities Inspector Name Role Phone Angela MCFARLANE MD, John E Primary Care Provider [phone] Reason for Visit * Reason Onset Date Comments Advice 08/19/2024 Pre-op Clearance 08/19/2024 Encounter Details Date Type Department Care Team (Late st Contact Info) Description 08/19/[address] [facility] 200 [place] [address] Jemal Miller III, MD 200 [place] [address] Advice; Pre-op Clearance Allergies No known active allergiesdocumented as of this encounter (statuses as of 08/20/2024) Medications MULTIVITAMIN/VA NERAL FORMULA OR TABS 1 TABLET DAILY [...] as of this encounter (statuses as of 08/20/2024) Active Problems Problem Noted Date Diagnosed Date Prediabetes 12/15/2023 Overview: Per Prediabetes protocol 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 S/P ascending aortic aneurysm repair 12/14/2022 Coronary artery disease invo lving [place] coronary artery of [place] heart with angina pectoris 12/09/2022 Impaired fasting [...] as of this encounter (statuses as of 08/20/2024) Resolved Problems Problem Noted Date Diagnosed Date Resolved Date Diabetes mellitus 12/14/2022 10/09/2023 Tear of right rotator cuff 11/08/2022 0 11/08/2022 Prediabetes 05/19/2018 12/18/2022 Overview: Per Prediabetes protocol #1 - ADVANCE DIRECTIVE INFORMATION 11/26/2005 08/09/2024 Overview (11/26/2005): No, Advance Directive brochure given to patient. OBESITY, UNSPECIFIED 010 Overview (01/01/2010): Per Obesity Taxonomy documented as of this encounter (statuses as of 08/20/2024) Immunizations Name Administration Dates Next Due Seasonal [...] empagliflozinbe held * Telephone Encounter - Jeaneth Nloand RN - 08/19/2024 2:07 PM EST Pt [...] Visit Shay, Kaylee Stevens [address] [place] [address] Flavia Erwin MD 200 [facility] [place] [address] 12/14/2024 10:00 AM EDT Imaging Radiology [facility] [place] [address] 12/24/2024 8:20 AM EDT Office Visit Family Practice [facility] [address] [facility] [place] [address] Jemal Miller III, MD [address] [facility] [place] [address] 12/30/2024 3:15 PM EDT Office Visit Urology Jesse [facility] [address] [place] [address] Oneil Ball MD 27 [place] [address] 01/27/2025 8:00 AM EDT Office Visit Cardiology, [facility] [address] [place] [address] Wilfrido Figueora MD 132 [facility] [place] [address] Scheduled Procedures Name Priority Associated Diagnoses Date/Ti [...] this encounter Medical Devices Implanted Type Area Earth Sciences Professor Device Identifier Shelf Expiration Date Model / Serial / Lot 28 Mm X 30 Cm Gelweave Gelatin Impregnated Woven Vascular Prosthesis Implanted:Qty: 1 on 12/09/2022 by Filiberto Russo MD at OR [facility] [place] [place] Graft N/A: Aorta [employer] : VASCUTEK [id number] 03/05/2025 [id number] / [id number] 1 / [id number] Suture Steel 6 B&S19 M654g - [id number] Implanted:Qty: 4 on 12/09/2022 by Filiberto Russo MD at OR [facility] [place] [place] N/A: Sternum JNJ : [employer] 09/04/2027 M654G / / SPBBPK Suture Steel 6 B&S19 M654g - [id number] Implanted:Qty: 4 on 12/09/2022 by Filiberto Russo MD at OR [facility] [place] [place] N/A: Sternum JNJ : [employer] 08/05/2027 M654G / / SMBEEL Marker Coronary - [id number] Implanted:Qty: 1 on 12/09/2022 by Filiberto uRsso MD at OR [facility] [place] [place] N/A: Heart [employer] 09/04/2025 [facility] / / [id number] documented as of this encounter Advance Directives Documents on File Type Date Recorded Patient Distance Education Director Expl anation Advance Directives and Living Will [...] Agen t (per Health Care Power of Civil Engineering Design Draftsperson document) Tyler Rosas Adult Child Second Alternate Health Care Agent (per Health Care Power of Civil Engineering Design Draftsperson document) Care Teams Health Care Facilities Inspector Relationship Specialty Start Date End Date Jemal Miller III, MD 200 [place] [address] PCP - General 05/20/1996 documented as of this encounter
--- OUTSIDE RECORDS SUMMARY | 2024-09-12 06:35 | External Medical Summary | Summary of Care ---
Author Name Unknown Organization [facility] Address [address] [place] [address] Phone [phone] Care Team Providers Care Lamp Tester And Inspector Name Role Phone Angela MCFARLANE MD, Jemal Li Primary Care Provider [phone] Reason for Visit * Reason Onset Date Comments FYI 08/24/2024 Encounter Details Date Type Department Care Team (Late st Contact Info) Description 08/24/2024 Telephone Nephrology, [address] [place] [address] Services, Scheduling [address] [place] [address] Allergies No known active allergiesdocumented as of this encounter (statuses as of 09/07/2024) Medications MULTIVITAMIN/VT NERAL FORMULA OR TABS 1 TABLET DAILY [...] repair 12/14/2022 Coronary artery disease invo lving [place] coronary artery of [place] heart with angina pectoris 12/09/2022 Impaired fasting [...] CPAP 10 11/2013 PSG -- AHI 12 [facility] BMI 35-39 ISOLATED (SEE ACTUAL BMI) [...] Assessment Author No 12/09/2022 6:10 PM Perla rAce RN * Do you have serious difficulty walking or climbing stairs? (5 years old or older) Answer Date of Assessment Author No 12/09/2022 6:10 PM Perla Arce RN * Do you have difficulty dressing or bathing? (5 years old or older) Answer Date of Assessment Author No 12/09/2022 6:10 PM Perla Acre RN * Because of a physical, mental, [...] - 09/07/2024 8:47 AM EST Janelle from [facility] on the line requesting a follow up [...] 11/09/2024 8:00 AM EST Office Visit Nephrology, Kaylee Stevens [address] [place] [address] Flavia Erwin MD 200 [facility] [address] 12/14/2024 10:00 AM EDT Imaging Radiology [facility] 132 [facility] [place] [address] 12/24/2024 8:20 AM EDT Office Visit Family Practice [facility] 200 [facility] [place], [place] [address] Jemal Miller III, MD 200 [facility] [place] [address] 12/30/2024 3:15 PM EDT Office Visit Urology Jesse Vernon [address] [place] [address] Oneil Ball MD [address] [place] [address] 01/27/2025 8:00 AM EDT Office Visit Cardiology, [facility] 132 [place] [address] Wilfrido Figueroa MD 132 [place] [address] Scheduled Procedures Name Priority Associated Diagnoses Date/Ti [...] this encounter Medical Devices Implanted Type Area Eyeglass Lens Cutter Device Identifier Shelf Expiration Date Model / Serial / Lot 28 Mm X 30 Cm Gelweave Gelatin Impregnated Woven Vascular Prosthesis Implanted:Qty: 1 on 12/09/2022 by Filiberto Russo MD at [place] [facility] [place] Graft N/A: Aorta [employer] : VASCUTEK [id number] 03/05/2025 [id number] / [id number] 1 / [id number] Suture Steel 6 B&S19 M654g - [id number] Implanted:Qty: 4 on 12/09/2022 by Filiberto Russo MD at OR [facility] [place] N/A: Sternum JNJ : [employer] 09/04/2027 M654G / / SPBBPK Suture Steel 6 B&S19 M654g - [id number] Implanted:Qty: 4 on 12/09/2022 by Filiberto Russo MD at [place] [facility] [place] N/A: Sternum JNJ : [employer] 08/05/2027 M654G / / SMBEEL Marker Coronary - [id number] Implanted:Qty: 1 on 12/09/2022 by Filiberto Russo MD at OR [facility] [place] N/A: Heart [employer] 09/04/2025 [facility] / / [id number] documented as of this encounter Advance Directives Documents on File Type Date Recorded Patient Global Upstream Marketing Manager Expl anation Advance Directives and Living Will 12/11/2022 ADVANCE DIRECTIVE / LIVING WILL * Full Code (Latest Code Status on File) Date Activated Date Inactivated Comments 12/09/2022 1:10 PM 12/14/2022 2:25 PM This order re flects the patients wishes and were consensually agreed upon. Question Answer Comments Discussion of Advance Directives occurred with: Patient Healthcare Agents on File Name Relationship Healthcare Agent Ecu Healthhi p Communication Cheikh Rosas Adult Child Health Care Agen t (per Health Care Power of Mexican Food Cook document) Tyler Rosas Adult Child [facility] Alternate Health Care Agent (per Health Care Power of Mexican Food Cook document) Care Teams Lamp Tester And Inspector Relationship Specialty Start Date End Date Jemal Miller III, MD 200 [place] [address] PCP - General 05/20/1996 documented as of this encounter
--- OUTSIDE RECORDS SUMMARY | 2024-09-12 06:35 | External Medical Summary | Summary of Care ---
Author Name Unknown Organization [facility] Address [address] [facility] [address] Phone [phone] Care Team Providers Care Wool Cleaner Name Role Phone Angela MCFARLANE MD, John E Primary Care Provider [phone] Reason for Visit * Reason Onset Date Comments Advice 08/19/2024 Pre-op Clearance 08/19/2024 Encounter Details Date Type Department Care Team (Late st Contact Info) Description 08/19/2024 Telephone Family Practice [facility] 200 [facility] [place] [address] Jemal Miller III, MD 200 [place] [address] Advice; Pre-op Clearance Allergies No known active allergiesdocumented as of this encounter (statuses as of 08/27/2024) Medications MULTIVITAMIN/AL NERAL FORMULA OR TABS 1 TABLET DAILY [...] as of this encounter (statuses as of 08/27/2024) Active Problems Problem Noted Date Diagnosed Date Prediabetes 12/15/2023 Overview: Per Prediabetes protocol 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 S/P ascending aortic aneurysm repair 12/14/2022 Coronary artery disease invo lving [place] coronary artery of [place] heart with angina pectoris 12/09/2022 Impaired fasting [...] as of this encounter (statuses as of 08/27/2024) Resolved Problems Problem Noted Date Diagnosed Date Resolved Date Diabetes mellitus 12/14/2022 10/09/2023 Tear of right rotator cuff 11/08/2022 0 11/08/2022 Prediabetes 05/19/2018 12/18/2022 Overview: Per Prediabetes protocol #1 - ADVANCE DIRECTIVE INFORMATION 11/26/2005 08/09/2024 Overview (11/26/2005): No, Advance Directive brochure given to patient. OBESITY, UNSPECIFIED 010 Overview (01/01/2010): Per Obesity Taxonomy documented as of this encounter (statuses as of 08/27/2024) Immunizations Name Administration Dates Next Due Seasonal [...] of Assessment Author No 12/09/2022 6:10 PM ePrla Arce RN * Do you have serious [...] Visit Shay, Kaylee Stevens [address] [place] [address] Flavia Erwin MD 200 [facility] [place] [address] 12/14/2024 10:00 AM EDT Imaging Radiology [facility] [place] [address] 12/24/2024 8:20 AM EDT Office Visit Family Practice [facility] 200 [facility] [place] [address] Jemal Miller III, MD 200 [facility] ON [facility] OF [facility] [place] [address] 12/30/2024 3:15 PM EDT Office Visit Urology Jesse Vernon [address] [place] [address] Oneil Ball MD 27 [place] [address] 01/27/2025 8:00 AM EDT Office Visit Cardiology, [facility] [address] [place] [address] Wilfrido Figueroa MD 132 [facility] [place] [address] Scheduled Procedures Name Priority Associated Diagnoses Date/Ti [...] this encounter Medical Devices Implanted Type Area Photographic Plate Maker Device Identifier Shelf Expiration Date Model / Serial / Lot 28 Mm X 30 Cm Gelweave Gelatin Impregnated Woven Vascular Prosthesis Implanted:Qty: 1 on 12/09/2022 by Filiberto Russo MD at OR [facility] [place] Graft N/A: Aorta [employer] : VASCUTEK [id number] 03/05/2025 [id number] / [id number] 1 / [id number] Suture Steel 6 B&S19 M654g - [id number] Implanted:Qty: 4 on 12/09/2022 by Filiberto Russo MD at OR [facility] [place] N/A: Sternum JNJ : [employer] 09/04/2027 M654G / / SPBBPK Suture Steel 6 B&S19 M654g - [id number] Implanted:Qty: 4 on 12/09/2022 by Filiberto Russo MD at OR [facility] [place] N/A: Sternum JNJ : [employer] 08/05/2027 M654G / / SMBEEL Marker Coronary - [id number] Implanted:Qty: 1 on 12/09/2022 by Filiberto Russo MD at OR [facility] [place] N/A: Heart [employer] 09/04/2025 [facility] / / [id number] documented as of this encounter Advance Directives Documents on File Type Date Recorded Patient Financial Aid Coordinator Expl anation Advance Directives and Living Will [...] Agen t (per Health Care Power of Manager Social Services document) Tyler Rosas Adult Child Second Alternate Health Care Agent (per Health Care Power of Manager Social Services document) Care Teams Wool Cleaner Relationship Specialty Start Date End Date Jemal Miller III, MD 200 [place] [address] PCP - General 05/20/1996 documented as of this encounter
--- OUTSIDE RECORDS SUMMARY | 2024-09-12 06:35 | External Medical Summary | Summary of Care ---
Author Name Unknown Organization [facility] Address [address] [place] [address] Phone [phone] Care Team Providers Care Orthopedic Nurse Name Role Phone Angela MCFARLANE MD, Jemal Li Primary Care Provider [phone] Reason for Visit * Reason Onset Date Comments FYI 08/24/2024 Encounter Details Date Type Department Care Team (Late st Contact Info) Description 08/24/2024 Telephone Nephrology, [address] [address] Services, Scheduling [address] [place] [address] Allergies No known active allergiesdocumented as of this encounter (statuses as of 08/24/2024) Medications MULTIVITAMIN/CT NERAL FORMULA OR TABS 1 TABLET DAILY [...] as of this encounter (statuses as of 08/24/2024) Active Problems Problem Noted Date Diagnosed Date Prediabetes 12/15/2023 Overview: Per Prediabetes protocol 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 S/P ascending aortic aneurysm repair 12/14/2022 Coronary artery disease invo lving [place] coronary artery of [place] heart with angina pectoris 12/09/2022 Impaired fasting [...] CPAP 10 11/2013 PSG -- AHI 12 [facility] BMI 35-39 ISOLATED (SEE ACTUAL BMI) 01/01/2010 Overview (01/01/2010): Per Obesity Taxonomy CALCULUS OF KIDNEY-HX 09/09/2002 HTN, goal below 140/90 12/02/2000 documented as of this encounter (statuses as of 08/24/2024) Resolved Problems Problem Noted Date Diagnosed Date Resolved Date Diabetes mellitus 12/14/2022 10/09/2023 Tear of right rotator cuff 11/08/2022 0 11/08/2022 Prediabetes 05/19/2018 12/18/2022 Overview: Per Prediabetes protocol #1 - ADVANCE DIRECTIVE INFORMATION 11/26/2005 08/09/2024 Overview (11/26/2005): No, Advance Directive brochure given to patient. OBESITY, UNSPECIFIED 010 Overview (01/01/2010): Per Obesity Taxonomy documented as of this encounter (statuses as of 08/24/2024) Immunizations Name Administration Dates Next Due Seasonal [...] encounter Miscellaneous Notes * Telephone Encounter - Stephanie Lara OSA [...] 11/09/2024 8:00 AM EST Office Visit Nephrology, [facility] [address] [facility] [place] [address] Flavia Erwin MD 200 [facility] [place] [address] 12/14/2024 10:00 AM EDT Imaging Radiology [facility] [address] [place] [address] 12/24/2024 8:20 AM EDT Office Visit Family Practice [facility] 200 [facility] [place] [address] Jemal Miller III, MD 200 [facility] [address] [facility] [place] [address] 12/30/2024 3:15 PM EDT Office Visit Urology [facility] [address] [place] [address] Oneil Ball MD [address] [place] [address] 01/27/2025 8:00 AM EDT Office Visit Cardiology, [facility] [address] [place] [address] Wilfrido Figueroa MD [address] [place] [address] Scheduled Procedures Name Priority Associated Diagnoses Date/Ti [...] this encounter Medical Devices Implanted Type Area Ent Physician Device Identifier Shelf Expiration Date Model / Serial / Lot 28 Mm X 30 Cm Gelweave Gelatin Impregnated Woven Vascular Prosthesis Implanted:Qty: 1 on 12/09/2022 by Filiberto Russo MD at OR [facility] Graft N/A: Aorta [employer] : VASCUTEK [id number] 03/05/2025 [id number] / [id number] 1 / [id number] Suture Steel 6 B&S19 M654g - [id number] Implanted:Qty: 4 on 12/09/2022 by Filiberto Russo MD at OR [facility] N/A: Sternum JNJ : [employer] 09/04/2027 M654G / / SPBBPK Suture Steel 6 B&S19 M654g - [id number] Implanted:Qty: 4 on 12/09/2022 by Filiberto Russo MD at OR [facility] N/A: Sternum JNJ : [employer] 08/05/2027 M654G / / SMBEEL Marker Coronary - [id number] Implanted:Qty: 1 on 12/09/2022 by Filiberto Russo MD at OR [facility] N/A: Heart [employer]ESSEE BI[employer] 09/04/2025 [facility] / / [id number] documented as of this encounter Advance Directives Documents on File Type Date Recorded Patient Senior Cytotechnologist Expl anation Advance Directives and Living Will [...] Agen t (per Health Care Power of Viscose Department Worker document) Tyler Rosas Adult Child [facility] Alternate Health Care Agent (per Health Care Power of Viscose Department Worker document) Care Teams Orthopedic Nurse Relationship Specialty Start Date End Date Jemal Miller III, MD 200 [facility] [place] [address] PCP - General 05/20/1996 documented as of this encounter
--- OUTSIDE RECORDS SUMMARY | 2024-09-12 06:35 | External Medical Summary | Summary of Care ---
Author Name Unknown Organization [facility] Address [address] [place] [address] Phone [phone] Care Team Providers Care Sap Mobility Architect Name Role Phone Angela MCFARLANE MD, Jemal Li Primary Care Provider [phone] Reason for Visit * Reason Onset Date Comments FYI 08/24/2024 Encounter Details Date Type Department Care Team (Late st Contact Info) Description 08/24/2024 Telephone Nephrology, [address] [place] [address] Services, Scheduling [address] [place] [address] Allergies No known active allergiesdocumented as of this encounter (statuses as of 09/07/2024) Medications MULTIVITAMIN/NH NERAL FORMULA OR TABS 1 TABLET DAILY [...] repair 12/14/2022 Coronary artery disease invo lving [place] coronary artery of [place] heart with angina pectoris 12/09/2022 Impaired fasting [...] CPAP 10 11/2013 PSG -- AHI 12 [facility] BMI 35-39 ISOLATED (SEE ACTUAL [...] encounter Miscellaneous Notes * Telephone Encounter - Helena Stern OSA - 09/07/2024 8:47 AM EST Janelle from [facility] on the line requesting a follow [...] 11/09/2024 8:00 AM EST Office Visit Nephrology, [facility] [address] [place] [address] [address] Flavia Erwin MD [address] [place] [address] [place] [address] 12/14/2024 10:00 AM EDT Imaging Radiology [facility] [address] [facility] [place] [address] 12/24/2024 8:20 AM EDT Office Visit Family Practice [facility] [address] [place] [address] [address] Jemal Miller III, MD [address] [place] [address] [address] 12/30/2024 3:15 PM EDT Office Visit Urology [facility] [address] [place] [address] Oneil Ball MD [address] [place] [address] 01/27/2025 8:00 AM EDT Office Visit Cardiology, [facility] [address] [place] [address] Wilfrido Figueroa MD [address] [place] [address] Scheduled Procedures Name Priority Associated Diagnoses Date/Ti [...] this encounter Medical Devices Implanted Type Area Fisherman Helper Device Identifier Shelf Expiration Date Model / Serial / Lot 28 Mm X 30 Cm Gelweave Gelatin Impregnated Woven Vascular Prosthesis Implanted:Qty: 1 on 12/09/2022 by Filiberto Russo MD at [place] [facility] Graft N/A: Aorta [employer] : VASCUTEK [id number] 03/05/2025 [id number] / [id number] 1 / [id number] Suture Steel 6 B&S19 M654g - [id number] Implanted:Qty: 4 on 12/09/2022 by Filiberto Russo MD at [place] [facility] N/A: Sternum JNJ : [employer] 09/04/2027 M654G / / SPBBPK Suture Steel 6 B&S19 M654g - [id number] Implanted:Qty: 4 on 12/09/2022 by Filiberto Russo MD at OR [facility] N/A: Sternum JNJ : [employer] 08/05/2027 M654G / / SMBEEL Marker Coronary - [id number] Implanted:Qty: 1 on 12/09/2022 by Filiberto Russo MD at OR [facility] N/A: Heart Spruce MediaSEE BI[employer]ED[employer] 09/04/2025 [facility] / / [id number] documented as of this encounter Advance Directives Documents on File Type Date Recorded Patient Radiology Therapist Expl anation Advance Directives and Living Will 12/11/2022 ADVANCE DIRECTIVE / LIVING WILL * Full Code (Latest Code Status on File) Date Activated Date Inactivated Comments 12/09/2022 1:10 PM 12/14/2022 2:25 PM This order re flects the patients wishes and were consensually agreed upon. Question Answer Comments Discussion of Advance Directives occurred with: Patient Healthcare Agents on File Name Relationship Healthcare Agent [facility] Communication Cheikh Rosas Adult Child Health Care Agetalia murray (per Health Care Power of Canvas Baster Jumpbasting document) Tyler Rosas Adult Child Second Alternate Health Care Agent (per Health Care Power of Canvas Baster Jumpbasting document) Care Teams Sap Mobility Architect Relationship Specialty Start Date End Date Jemal Miller III, MD [address] [facility] [address] PCP - General 05/20/1996 documented as of this encounter
--- OUTSIDE RECORDS SUMMARY | 2024-09-12 06:35 | External Medical Summary | Summary of Care ---
Author Name Unknown Organization [facility] Address [address] [place] [address] Phone [phone] Care Team Providers Care Electrolysis Engineer Name Role Phone Angela MCFARLANE MD, Jemal Li Primary Care Provider [phone] Reason for Visit * Reason Onset Date Comments FYI 08/24/2024 Encounter Details Date Type Department Care Team (Late st Contact Info) Description 08/24/2024 Telephone Nephrology, [address] [place] [address] Services, Scheduling [address] [place] [address] Allergies No known active allergiesdocumented as of this encounter (statuses as of 09/08/2024) Medications MULTIVITAMIN/AL NERAL FORMULA OR TABS 1 [...] as of this encounter (statuses as of 09/08/2024) Active Problems Problem Noted Date Diagnosed Date Prediabetes 12/15/2023 Overview: Per Prediabetes protocol 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 S/P ascending aortic aneurysm repair 12/14/2022 Coronary artery disease invo lving [place] coronary artery of [place] heart with angina pectoris 12/09/2022 Impaired fasting [...] CPAP 10 11/2013 PSG -- AHI 12 [facility] BMI 35-39 ISOLATED (SEE ACTUAL BMI) 01/01/2010 Overview (01/01/2010): Per Obesity Taxonomy CALCULUS OF KIDNEY-HX 09/09/2002 HTN, goal below 140/90 12/02/2000 documented as of this encounter (statuses as of 09/08/2024) Resolved Problems Problem Noted Date Diagnosed Date Resolved Date Diabetes mellitus 12/14/2022 10/09/2023 Tear of right rotator cuff 11/08/2022 0 11/08/2022 Prediabetes 05/19/2018 12/18/2022 Overview: Per Prediabetes protocol #1 - ADVANCE DIRECTIVE INFORMATION 11/26/2005 08/09/2024 Overview (11/26/2005): No, Advance Directive brochure given to patient. OBESITY, UNSPECIFIED 010 Overview (01/01/2010): Per Obesity Taxonomy documented as of this encounter (statuses as of 09/08/2024) Immunizations Name Administration Dates Next Due Seasonal [...] Telephone Encounter - Chayo Espino LPN - 09/08/2024 8:42 AM EST Spoke with Janelle she is aware States she has access to [employer] and will review Pt is aware will need to hold Jaridiance morning and day after surgery When he is settle with pain controlled he will provide another 3 day BP log * Telephone Encounter - Flavia Erwin MD [...] - 09/07/2024 8:47 AM EST Janelle from [facility] on the line requesting a follow [...] 11/09/2024 8:00 AM EST Office Visit Nephrology, [facility] 200 [facility] [place] [address] Flavia Erwin MD 200 [facility] [place] [address] 12/14/2024 10:00 AM EDT Imaging Radiology [facility] [address] [address] 12/24/2024 8:20 AM EDT Office Visit Family Practice [facility] 200 [facility] [place] [address] Jemal Miller III, MD 200 [facility] [place] [address] 12/30/2024 3:15 PM EDT Office Visit Urology [facility] [address] [place] [address] Oneil Ball MD [address] [place] [address] 01/27/2025 8:00 AM EDT Office Visit Cardiology, [facility] [address] [place] [address] Wilfrido Figueroa MD [address] [place] [address] Scheduled Procedures Name Priority Associated Diagnoses Date/Ti me COLONOSCOPY FLEXIBLE PROXIMAL DIAGNOSTIC Recall Screen for colon cancer Health Maintenance Due Date Last Done Comments Pneumococcal Vaccine: 65+ Years (1 of 2 - PCV) 1964 Cologuard 2003 Fecal Occult Blood Test 2003 Sigmoidoscopy 2003 COVID-19 Vaccine ( - season) 2024 Influenza Vaccine (FLU shot) (#1) [...] this encounter Medical Devices Implanted Type Area Print Binding And Finishing Worker Device Identifier Shelf Expiration Date Model / Serial / Lot 28 Mm X 30 Cm Gelweave Gelatin Impregnated Woven Vascular Prosthesis Implanted:Qty: 1 on 12/09/2022 by Filiberto Russo MD at OR [facility] [place] Graft N/A: Aorta [employer] : VASCUTEK [id number] 03/05/2025 [id number] / [id number] 1 / [id number] Suture Steel 6 B&S19 M654g - [id number] Implanted:Qty: 4 on 12/09/2022 by Filiberto Russo MD at OR [facility] N/A: Sternum JNJ : [employer] 09/04/2027 M654G / / SPBBPK Suture Steel 6 B&S19 M654g - [id number] Implanted:Qty: 4 on 12/09/2022 by Filiberto Russo MD at OR [facility] N/A: Sternum JNJ : [employer] 08/05/2027 M654G / / SMBEEL Marker Coronary - [id number] Implanted:Qty: 1 on 12/09/2022 by Filiberto Russo MD at OR [facility] N/A: Heart [employer] BI[employer] 09/04/2025 [facility] / / [id number] documented as of this encounter Advance Directives Documents on File Type Date Recorded Patient Scrap Stripper Hand Expl anation Advance Directives and Living Will [...] Communication Cheikh Rosas Adult Child Health Care Caroline murray (per Health Care Power of Assembler Movement document) Tyler Rosas Adult Child [facility] Alternate Health Care Agent (per Health Care Power of Assembler Movement document) Care Teams Electrolysis Engineer Relationship Specialty Start Date End Date Jemal Miller III, MD [address] [place] [address] PCP - General 05/20/1996 documented as of this encounter
--- OUTSIDE RECORDS SUMMARY | 2024-09-12 06:35 | External Medical Summary | Summary of Care ---
Author Name Unknown Organization [facility] Address [address] [place] [address] Phone [phone] Care Team Providers Care Mechanical Project Engineer Name Role Phone Angela MCFARLANE MD, Jemal Li Primary Care Provider [phone] Reason for Visit * Reason Onset Date Comments FYI 08/24/2024 Encounter Details Date Type Department Care Team (Late st Contact Info) Description 08/24/2024 Telephone Nephrology, [address] [address] Services, Scheduling [address] [place] [address] Allergies No known active allergiesdocumented as of this encounter (statuses as of 08/25/2024) Medications MULTIVITAMIN/DE NERAL FORMULA OR TABS 1 TABLET DAILY [...] as of this encounter (statuses as of 08/25/2024) Active Problems Problem Noted Date Diagnosed Date Prediabetes 12/15/2023 Overview: Per Prediabetes protocol 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 S/P ascending aortic aneurysm repair 12/14/2022 Coronary artery disease invo lving [place] coronary artery of [place] heart with angina pectoris 12/09/2022 Impaired fasting [...] CPAP 10 11/2013 PSG -- AHI 12 [facility] BMI 35-39 ISOLATED (SEE ACTUAL BMI) 01/01/2010 Overview (01/01/2010): Per Obesity Taxonomy CALCULUS OF KIDNEY-HX 09/09/2002 HTN, goal below 140/90 12/02/2000 documented as of this encounter (statuses as of 08/25/2024) Resolved Problems Problem Noted Date Diagnosed Date Resolved Date Diabetes mellitus 12/14/2022 10/09/2023 Tear of right rotator cuff 11/08/2022 0 11/08/2022 Prediabetes 05/19/2018 12/18/2022 Overview: Per Prediabetes protocol #1 - ADVANCE DIRECTIVE INFORMATION 11/26/2005 08/09/2024 Overview (11/26/2005): No, Advance Directive brochure given to patient. OBESITY, UNSPECIFIED 010 Overview (01/01/2010): Per Obesity Taxonomy documented as of this encounter (statuses as of 08/25/2024) Immunizations Name Administration Dates Next Due Seasonal [...] 11/09/2024 8:00 AM EST Office Visit Nephrology, [facility] [address] [place] [address] Flavia Erwin MD [address] [place] [address] 12/14/2024 10:00 AM EDT Imaging Radiology [facility] 132 [facility] [place] [address] 12/24/2024 8:20 AM EDT Office Visit Family Practice [facility] [address] [place] [address] Jemal Miller III, MD [address] [place] [address] 12/30/2024 3:15 PM EDT Office Visit Urology [facility] [address] [place] [address] Oneil Ball MD [address] [place] [address] 01/27/2025 8:00 AM EDT Office Visit Cardiology, [facility] [address] [place] [address] Wilfrido Figueroa MD [address] [place] [address] Scheduled Procedures Name Priority Associated Diagnoses Date/Ti [...] this encounter Medical Devices Implanted Type Area Scourer Device Identifier Shelf Expiration Date Model / Serial / Lot 28 Mm X 30 Cm Gelweave Gelatin Impregnated Woven Vascular Prosthesis Implanted:Qty: 1 on 12/09/2022 by Filiberto Russo MD at [place] [facility] Graft N/A: Aorta [employer] : VASCUTEK [id number] 03/05/2025 [id number] / [id number] 1 / [id number] Suture Steel 6 B&S19 M654g - [id number] Implanted:Qty: 4 on 12/09/2022 by Filiberto Russo MD at [place] [facility] N/A: Sternum JNJ : [employer] 09/04/2027 M654G / / SPBBPK Suture Steel 6 B&S19 M654g - [id number] Implanted:Qty: 4 on 12/09/2022 by Filiberto Russo MD at [place] [facility] N/A: Sternum JNJ : [employer] 08/05/2027 M654G / / SMBEEL Marker Coronary - [id number] Implanted:Qty: 1 on 12/09/2022 by Filiberto Russo MD at [place] [facility] N/A: Heart [employer] 09/04/2025 [facility] / / [id number] documented as of this encounter Advance Directives Documents on File Type Date Recorded Patient Diagnostics Tech Expl anation Advance Directives and Living Will [...] Agen t (per Health Care Power of Oil Distributor document) Tyler Rosas Adult Child Second Alternate Health Care Agent (per Health Care Power of Oil Distributor document) Care Teams Mechanical Project Engineer Relationship Specialty Start Date End Date Jemal Miller III, MD 200 [place] [address] PCP - General 05/20/1996 documented as of this encounter
--- OUTSIDE RECORDS SUMMARY | 2024-09-12 06:35 | External Medical Summary | Summary of Care ---
Author Name Unknown Organization [facility] Address [address] [facility] [address] Phone [phone] Care Team Providers Care Manufacturing Applications Engineer Name Role Phone Angela MCFARLANE MD, John E Primary Care Provider [phone] Reason for Visit * Reason Onset Date Comments Advice 08/19/2024 Pre-op Clearance 08/19/2024 Encounter Details Date Type Department Care Team (Late st Contact Info) Description 08/19/2024 Telephone Family Practice [facility] 200 [facility] [place] [address] Jemal Miller III, MD 200 [place] [address] Advice; Pre-op Clearance Allergies No known active allergiesdocumented as of this encounter (statuses as of 08/24/2024) Medications MULTIVITAMIN/TX NERAL FORMULA OR TABS 1 TABLET DAILY [...] repair 12/14/2022 Coronary artery disease invo lving [place] coronary artery of [place] heart with angina pectoris 12/09/2022 Impaired fasting [...] Visit Shay, [facility] [address] [place] [address] Flavia Erwin MD 200 [facility] [place] [address] 12/14/2024 10:00 AM EDT Imaging Radiology [facility] [place] [address] 12/24/2024 8:20 AM EDT Office Visit Family Practice [facility] 200 [facility] [place] [address] Jemal Miller III, MD 200 [facility] [place] [address] 12/30/2024 3:15 PM EDT Office Visit Urology [facility] [address] [place] [address] Oneil Ball MD 27 [place] [address] 01/27/2025 8:00 AM EDT Office Visit Cardiology, [facility] [address] [place] [address] Wilfrido Figueroa MD 132 [facility] [place] [address] Scheduled Procedures Name Priority Associated Diagnoses Date/Ti [...] this encounter Medical Devices Implanted Type Area Duct Installer Device Identifier Shelf Expiration Date Model / Serial / Lot 28 Mm X 30 Cm Gelweave Gelatin Impregnated Woven Vascular Prosthesis Implanted:Qty: 1 on 12/09/2022 by Filiberto Russo MD at OR [place] Graft N/A: Aorta [employer] : VASCUTEK [id number] 03/05/2025 [id number] / [id number] 1 / [id number] Suture Steel 6 B&S19 M654g - [id number] Implanted:Qty: 4 on 12/09/2022 by Filiberto Russo MD at OR [place] N/A: Sternum JNJ : [employer] 09/04/2027 M654G / / SPBBPK Suture Steel 6 B&S19 M654g - [id number] Implanted:Qty: 4 on 12/09/2022 by Filiberto Russo MD at OR [place] N/A: Sternum JNJ : [employer] 08/05/2027 M654G / / SMBEEL Marker Coronary - [id number] Implanted:Qty: 1 on 12/09/2022 by Filiberto Russo MD at OR [place] N/A: Heart [employer] BI[employer] 09/04/2025 [facility] / / [id number] documented as of this encounter Advance Directives Documents on File Type Date Recorded Patient Civil Draftsman Expl anation Advance Directives and Living Will [...] Agen t (per Health Care Power of Food Production Machine Operator document) Tyler Rosas Adult Child Second Alternate Health Care Agent (per Health Care Power of Food Production Machine Operator document) Care Teams Manufacturing Applications Engineer Relationship Specialty Start Date End Date Jemal Miller III, MD 200 [place] [address] PCP - General 05/20/1996 documented as of this encounter
--- OUTSIDE RECORDS SUMMARY | 2024-09-12 06:35 | External Medical Summary | Summary of Care ---
Author Name Unknown Organization [facility] Address [address] [facility] [address] Phone [phone] Care Team Providers Care Screedman Name Role Phone Angela MCFARLANE MD, John E Primary Care Provider [phone] Reason for Visit * Reason Onset Date Comments Advice 08/19/2024 Pre-op Clearance 08/19/2024 Encounter Details Date Type Department Care Team (Late st Contact Info) Description 08/19/2024 Telephone Family Practice [facility] [address] [facility] [address] Jemal Miller III, MD 200 [facility] [place] [address] Advice; Pre-op Clearance Allergies No known active allergiesdocumented as of this encounter (statuses as of 08/23/2024) Medications MULTIVITAMIN/[place] NERAL FORMULA OR TABS 1 TABLET DAILY [...] as of this encounter (statuses as of 08/23/2024) Active Problems Problem Noted Date Diagnosed Date Prediabetes 12/15/2023 Overview: Per Prediabetes protocol 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 S/P ascending aortic aneurysm repair 12/14/2022 Coronary artery disease invo lving [place] coronary artery of [place] heart with angina pectoris 12/09/2022 Impaired fasting [...] as of this encounter (statuses as of 08/23/2024) Resolved Problems Problem Noted Date Diagnosed Date Resolved Date Diabetes mellitus 12/14/2022 10/09/2023 Tear of right rotator cuff 11/08/2022 0 11/08/2022 Prediabetes 05/19/2018 12/18/2022 Overview: Per Prediabetes protocol #1 - ADVANCE DIRECTIVE INFORMATION 11/26/2005 08/09/2024 Overview (11/26/2005): No, Advance Directive brochure given to patient. OBESITY, UNSPECIFIED 010 Overview (01/01/2010): Per Obesity Taxonomy documented as of this encounter (statuses as of 08/23/2024) Immunizations Name Administration Dates Next Due Seasonal [...] Visit Shay, Kaylee Stevens [address] [place] [address] Flavia Erwin MD 200 [facility] [place] [address] 12/14/2024 10:00 AM EDT Imaging Radiology [facility] [address] [facility] [place] [address] 12/24/2024 8:20 AM EDT Office Visit Family Practice [facility] [address] [facility] [place] [address] Jemal Miller III, MD [address] [facility] [place] [address] 12/30/2024 3:15 PM EDT Office Visit Urology Jesse Vernon [address] [place] [address] Oneil Ball MD 27 [place] [address] 01/27/2025 8:00 AM EDT Office Visit Cardiology, [facility] [address] [place] [address] Wilfrido Figueroa MD 132 [facility] [place] [address] Scheduled Procedures Name Priority Associated Diagnoses Date/Ti [...] this encounter Medical Devices Implanted Type Area Analysis Intern Device Identifier Shelf Expiration Date Model / Serial / Lot 28 Mm X 30 Cm Gelweave Gelatin Impregnated Woven Vascular Prosthesis Implanted:Qty: 1 on 12/09/2022 by Filiberto Russo MD at OR [facility] [place] Graft N/A: Aorta [employer] : VASCUTEK [id number] 03/05/2025 [id number] / [id number] / [id number] Suture Steel 6 B&S19 M654g - [id number] Implanted:Qty: 4 on 12/09/2022 by Filiberto Russo MD at OR [facility] [place] N/A: Sternum JNJ : [employer] 09/04/2027 M654G / / [id number] Suture Steel 6 B&S19 M654g - [id number] Implanted:Qty: 4 on 12/09/2022 by Filiberto Russo MD at OR [facility] [place] N/A: Sternum JNJ : [employer] 08/05/2027 M654G / / SMBEEL Marker Coronary - [id number] Implanted:Qty: 1 on 12/09/2022 by Filiberto Russo MD at OR [facility] [place] N/A: Heart [employer] 09/04/2025 [facility] / / [id number] documented as of this encounter Advance Directives Documents on File Type Date Recorded Patient Interventional Radiologist Expl anation Advance Directives and Living Will [...] Agen t (per Health Care Power of Allergist document) Tyler Rosas Adult Child Second Alternate Health Care Agent (per Health Care Power of Allergist document) Care Teams Screedman Relationship Specialty Start Date End Date Jemal Miller III, MD [address] [place] [address] PCP - General 05/20/1996 documented as of this encounter
--- OUTSIDE RECORDS SUMMARY | 2024-09-12 06:36 | External Medical Summary | Summary of Care ---
Author Name Unknown Organization [facility] Address [address] [place] [address] Phone [phone] Care Team Providers Care Cigarette Lighter Repairer Name Role Phone Angela MCFARLANE MD, Jemal Li Primary Care Provider [phone] Reason for Visit * Reason Onset Date Comments Blood Pressure Readings 07/14/2024 Encounter Details Date Type Department Care Team (Late st Contact Info) Description 07/14/2024 Telephone Access Center, [facility] [address] [facility] *DO NOT REMOVE THIS DEPARTMENT* [place] [address] Services, Scheduling [address] [place] [address] Blood Pressure Readings Allergies No known active allergiesdocumented as of this encounter (statuses as of 07/29/2024) Medications Medication Sig Dispensed Refills Start Date End Date Status MULTIVITAMIN/MINERAL FORMULA OR TABS 1 TABLET DAILY 30 [...] Active amLODIPine Besylate 10 MG Oral Tablet (Norvasc)Indications :HTN, goal below 140/90 TAKE 1 TABLET BY MOUTH EVERY DAY IN THE MORNING 90 Tablet 2 04/30/2024 Active Lisinopril 40 MG Oral Tablet TAKE 1 TABLET BY MOUTH EVERY DAY IN THE MORNING 90 Tablet 2 04/30/2024 Active Empagliflozin 10 MG Oral Tablet (Jardiance) Take 1 Tablet by mouth in the morning. 90 Tablet 3 06/24/2024 Active Furosemide 20 MG Oral Tablet (Lasix)Indications:H TN, goal below 140/90,Dyslipidemia, goal LDL below 70,S/P CABG x 2,S/P ascending aortic aneurysm repair Take 1 Tablet by mouth once a day on Friday, Friday, and Friday only. 36 Tablet 5 06/25/2024 Active Atorvastatin Calcium 20 MG Oral Tablet (Lipitor) Fri 30 Tablet 5 07/08/2024 Active Metoprolol Succinate ER 50 MG Oral Tablet Extended Release 24 Hour (toPROL XL)Indications:HTN, goal below 140/90 TAKE 1.5 TABLETS BY MOUTH IN THE MORNING 135 Tablet 3 07/13/2024 Active Chlorthalidone 25 MG Oral Tablet (Hygroton) Take 0.5 Tablets by mouth in the morning. 30 Tablet 5 07/28/2024 Active documented as of this encounter (statuses as of 07/29/2024) Active Problems Problem Noted Date Diagnosed Date Prediabetes 12/15/2023 Overview: Per Prediabetes protocol 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 S/P ascending aortic aneurysm repair 12/14/2022 Coronary artery disease invo lving [place] coronary artery of [place] heart with angina pectoris 12/09/2022 Impaired fasting glucose 11/27/2022 Nontraumatic tear of right rotator cuff 11/27/19 23 Ascending aortic aneurysm 11/27/2022 Body mass index (BMI) of 40.0 to 44.9 in adult 0 02/13/2021 Overview: Per Obesity protocol Morbid obesity due to excess calories 04/24/2020 Mild obstructive sleep apnea 11/19/2013 Overview: CPAP 2013 Titration PSG -- CPAP 11/2013 PSG -- AHI 12 [facility] BMI 35-39 ISOLATED (SEE ACTUAL BMI) 01/01/2010 Overview: Per Obesity Taxonomy ADVANCE DIRECTIVE INFORMATION 11/26/2005 Overview: No, Advance Directive brochure given to patient. CALCULUS OF KIDNEY-HX 09/09/2002 HTN, goal below 140/90 12/02/2000 documented as of this encounter (statuses as of 07/29/2024) Resolved Problems Problem Noted Date Diagnosed Date Resolved Date Diabetes mellitus 12/14/2022 10/09/2023 Tear of right rotator cuff 11/08/2022 0 11/08/2022 Prediabetes 05/19/2018 12/18/2022 Overview: Per Prediabetes protocol #1 - OBESITY, UNSPECIFIED 010 Overview: Per Obesity Taxonomy documented as of this encounter (statuses as of 07/29/2024) Immunizations Name Administration Dates Next Due Seasonal [...] Recorded Sex Assigned at Not on file Gender Identity Not on file Sexual Orientation Not on file Job Start Date Occupation Industry Not on file Not on file Not on file documented as of this encounter Functional Status Functional Status Response Date of Assess ment Are you deaf or do you have serious difficulty h earing? No 12/09/2022 Are you blind or do you have serious difficulty seeing, even when wearing glasses? No 12/09/2022 Do you have serious difficul ty walking or climbing stairs? (5 years old or older) No 12/09/2022 Do you have difficulty dress ing or bathing? (5 years old or older) No 12/09/2022 Because of a physical, menta l, or emotional condition, do you have difficulty doing errands alone such as visiting a doctor s office or shopping? (15 years old or older) No 12/10/19 Cognitive Status Response Date of Assessm ent Because of a physical, menta l, or emotional condition, do you have serious difficulty concentrating, remembering, or making decisions? (5 years old or older) No 12/09/2022 documented as of this encounter Miscellaneous Notes * Telephone Encounter - Chayo Espino LPN - 07/28/2024 9:22 AM EDT Pt is advised of such Requests rx to [facility] Pt will repeat labs and 3 day BP log as instructed Lab orders placed in Soon[facility] system Rx pended sent to MD for approval Pt will report any problems with additional medication * Telephone Encounter - Chayo Espino LPN - 07/27/2024 4:23 PM EDT LMM to return call * Telephone Encounter - Flavia Erwin MD - 07/27/2024 2:48 PM EDT BP remain above goal <130/80 Suggest >chlorthalidone 12.5 mg daily >repeat bmp and 3 day log thereafter >if still not at goal needs MTDM pls Pls update pt * Telephone Encounter - Talita Mitchell OSA - 07/14/2024 3:45 PM EDT 07/06 4:30 pm 135/79 HR 68 4:35 pm 135/80 HR 68 07/07 12:00pm 142/82 HR 62 12:05 pm 136/78 HR 64 9:00pm 131/74 HR 62 9:05pm 129/74 HR 58 07/08 4:30am 145/82 HR 61 4:35am 140/80 HR 62 6:30pm 134/80 HR 66 6:35pm 139/79 HR64 07/09 5:00am 149/81 HR 57 5:05am 139/78 HR 57 6:30 pm 141/82 HR 65 6:35pm 137/79 HR 62 documented in this encounter Plan of Treatment Upcoming Encounters Date Type Department Care Team (Late st Contact Info) Description 11/09/2024 8:00 AM EST Office Visit Nephrology, [facility] [address] [place] [address] Flavia Erwin MD [address] [place] [address] 12/14/2024 10:00 AM EDT Imaging Rad[facility] [place] [address] 12/24/2024 8:20 AM EDT Office Visit Family Practice [facility] [address] [place] [address] [place] Jemal MCFARLANE MD [address] [facility] [place] [address] 12/30/2024 3:15 PM EDT Office Visit Urology Jesse Vernon [address] [place] [id number] Oneil Ball MD 27 [place] [address] 01/27/2025 8:00 AM EDT Office Visit Cardiology, [facility] [address] [place] [address] Wilfrido Figueroa MD [address] [place] [address] Scheduled Orders Name Type Priority Associated Diagnoses Orde r Schedule BASIC METABOLIC PANEL Lab Routine HTN, goal below 140/90 Expected: 07/28/2024 (Approximate), Expires: 07/28/2025 Scheduled Procedures Name Priority Associated Diagnoses Date/Ti [...] Additional history exists Depression Screening 06/12/2024 06/12/2023 GFR 12/18/2024 12/19/2023, 07/06, 06/27/2023, Additional history exists B-12 06/18/2025 06/18/2024, 05/06, 08/02/2022, Additional history exists HbA1c 06/18/2025 06/18/2024, 03/0 10/2023, 06/27/2023, Additional history exists Albumin/Creatinine Ratio 07/22/2027 024, [...] this encounter Medical Devices Implanted Type Area Pilot Submersible Device Identifier Shelf Expiration Date Model / Serial / Lot 28 Mm X 30 Cm Gelweave Gelatin Impregnated Woven Vascular Prosthesis Implanted:Qty: 1 on 12/09/2022 by Filiberto Russo MD at OR [facility] Graft N/A: Aorta [employer] : VASCUTEK [id number] 03/05/2025 [id number] / [id number] 1 / [id number] Suture Steel 6 B&S19 M654g - [id number] Implanted:Qty: 4 on 12/09/2022 by Filiberto Russo MD at OR [facility] N/A: Sternum JNJ : [employer] 09/04/2027 M654G / / SPBBPK Suture Steel 6 B&S19 M654g - [id number] Implanted:Qty: 4 on 12/09/2022 by Filiberto Russo MD at OR [facility] N/A: Sternum JNJ : [employer] 08/05/2027 M654G / / SMBEEL Marker Coronary - [id number] Implanted:Qty: 1 on 12/09/2022 by Filiberto Russo MD at OR [facility] N/A: Heart [employer] 09/04/2025 [facility] / / [id number] documented as of this encounter Visit Diagnoses Diagnosis HTN, goal below 140/90- Primary Unspecified essential hypertension documented in this encounter Advance Directives Documents on File Type Date Recorded Patient Unemployment Specialist Expl anation Advance Directives and Living Will 12/11/2022 ADVANCE DIRECTIVE / LIVING WILL * Full Code (Latest Code Status on File) Date Activated Date Inactivated Comments 12/09/2022 1:10 PM 12/14/2022 2:25 PM This order re flects the patients wishes and were consensually agreed upon. Question Answer Comments Discussion of Advance Directives occurred with: Patient Healthcare Agents on File Name Relationship Healthcare Agent Relationship Communication Cheikh Rosas Adult Child Health Care Agen trevor (per Health Care Power of Coin Machine Servicer Repairer document) Tyler Alison Adult Child Second Alternate Health Care Agent (per Health Care Power of Coin Machine Servicer Repairer document) Care Teams Cigarette Lighter Repairer Relationship Specialty Start Date End Date Jemal Miller III, MD 200 [facility] [place] [address] PCP - General 05/20/1996 documented as of this encounter
--- OUTSIDE RECORDS SUMMARY | 2024-09-12 06:36 | External Medical Summary | Summary of Care ---
Author Name Unknown Organization [facility] Address [address] [facility] [place] [address] Phone [phone] Care Team Providers Care Physical Damage Appraiser Name Role Phone Angela MCFARLANE MD, Jemal Li Primary Care Provider [phone] Reason for Visit * Reason Onset Date Comments Advice 08/04/2024 Encounter Details Date Type Department Care Team (Late st Contact Info) Description 08/04/2024 Telephone Family Practice [facility] [place] [address] [facility] [place] [address] Jemal Miller III, MD [facility] [address] Advice Allergies No known active allergiesdocumented as of this encounter (statuses as of 08/06/2024) Medications Medication Sig Dispensed Refills Start Date End Date Status MULTIVITAMIN/MINE RAL FORMULA OR TABS 1 TABLET DAILY 30 [...] Active amLODIPine Besylate 10 MG Oral Tablet (Norvasc)Indicati ons:HTN, goal below 140/90 TAKE 1 TABLET BY MOUTH EVERY DAY IN THE MORNING 90 Tablet 2 04/30/2024 Active Lisinopril 40 MG Oral Tablet TAKE 1 TABLET BY MOUTH EVERY DAY IN THE MORNING 90 Tablet 2 04/30/2024 Active Empagliflozin 10 MG Oral Tablet (Jardiance) Take 1 Tablet by mouth in the morning. 90 Tablet 3 06/24/2024 Active Furosemide 20 MG Oral Tablet (Lasix)Indication s:HTN, goal below 140/90,Dyslipidem ia, goal LDL below 70,S/P CABG x 2,S/P ascending aortic aneurysm repair Take 1 Tablet by mouth once a day on Friday, Friday, and Friday only. 36 Tablet 5 06/25/2024 Active Atorvastatin Calcium 20 MG Oral Tablet (Lipitor) Fri 30 Tablet 5 07/08/2024 Active Metoprolol Succinate ER 50 MG Oral Tablet Extended Release 24 Hour (toPROL XL)Indications:HT N, goal below 140/90 TAKE 1.5 TABLETS BY MOUTH IN THE MORNING 135 Tablet 3 07/13/2024 Active Chlorthalidone 25 MG Oral Tablet (Hygroton) Take 0.5 Tablets by mouth in the morning. 30 Tablet 5 08/06/2024 Active Chlorthalidone 25 MG Oral Tablet (Hygroton) Take 0.5 Tablets by mouth in the morning. 30 Tablet 5 07/28/2024 08/06/2024 Discontinued (Refill) documented as of this encounter (statuses as of 08/06/2024) Active Problems Problem Noted Date Diagnosed Date Prediabetes 12/15/2023 Overview: Per Prediabetes protocol 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 S/P ascending aortic aneurysm repair 12/14/2022 Coronary artery disease invo lving [place] coronary artery of [place] heart with angina pectoris 12/09/2022 Impaired fasting glucose 11/27/2022 Nontraumatic tear of right rotator cuff 11/27/19 Ascending aortic aneurysm 11/27/2022 Body mass index (BMI) of 40.0 to 44.9 in adult 0 02/13/2021 Overview: Per Obesity protocol Morbid obesity due to excess calories 04/24/2020 Mild obstructive sleep apnea 11/19/2013 Overview: CPAP 10 cwp 2013 Titration PSG -- CPAP 10 11/2013 PSG -- AHI 12 [facility] BMI 35-39 ISOLATED (SEE ACTUAL BMI) 01/01/2010 Overview: Per Obesity Taxonomy ADVANCE DIRECTIVE INFORMATION 11/26/2005 Overview: No, Advance Directive brochure given to patient. CALCULUS OF KIDNEY-HX 09/09/2002 HTN, goal below 140/90 12/02/2000 documented as of this encounter (statuses as of 08/06/2024) Resolved Problems Problem Noted Date Diagnosed Date Resolved Date Diabetes mellitus 12/14/2022 10/09/2023 Tear of right rotator cuff 11/08/2022 0 11/08/2022 Prediabetes 05/19/2018 12/18/2022 Overview: Per Prediabetes protocol #1 - OBESITY, UNSPECIFIED 010 Overview: Per Obesity Taxonomy documented as of this encounter (statuses as of 08/06/2024) Immunizations Name Administration Dates Next Due Seasonal [...] Telephone Encounter - Chayo Espino LPN - 08/06/2024 9:55 AM EDT [facility] will will resend for MD approval MD Pharmacy never received Please resign * Telephone Encounter - Chayo Espino LPN - 08/06/2024 8:51 AM EDT Lab orders placed in [facility] lab system * Telephone Encounter - Chayo Espino LPN - 08/06/2024 8:48 AM EDT Pt is made aware He will continue to work on BP repeat labs as instructed Of note pt has not received rx on [place] He will call Pharmacy This may need to be reordered Pt will return call to see if this is needed Dr Miller Can you speak with [facility] * Telephone Encounter - Chayo Espino LPN - 08/06/2024 8:42 AM EDT Lab orders placed in [facility] lab system * Telephone Encounter - Jemal Miller III, MD - 08/06/2024 8:15 AM EDT Thanks * Telephone Encounter - Flavia Erwin MD - 08/05/2024 1:08 PM EDT Images from the original note were not included. [facility] labs reviewed: Baseline creatinine 1.1-1.2; here creat slightly worse than baseline but not severe, does not meet DEON criteria. Do not believe renal function/creatinine in 1.4 range should preclude surgery. -continue work to control HTN (see last note) -repeat BMP in 10 days Neph nurse pls update pt; pls contact [facility] anesthesia Dr Meghana DELCID * Telephone Encounter - Jemal Miller III, MD - 08/04/2024 11:06 AM EDT Any further concerns recommendations * Telephone Encounter - Ellyn Dillard LPN - 08/04/2024 9:49 AM EDT Vivi Anesthesiologist from [facility] surgical team. Wants to make Jemal Miller III, MD aware of patients creatinine results from 07/26. CREATININE 0.6 - 1.4 MG/DL 1.41 Abnormal Patient has Right shoulder surgery scheduled on 09/10/24. Please advice. documented in this encounter Plan of Treatment Upcoming Encounters Date Type Department Care Team (Late st Contact Info) Description 11/09/2024 8:00 AM EST Office Visit Nephrology, [facility] [address] [facility] [place] [address] Flavia Erwin MD 200 [facility] [place] [address] 12/14/2024 10:00 AM EDT Imaging Radiology [facility] [address] [place] [address] 12/24/2024 8:20 AM EDT Office Visit Family Practice [facility] [address] [facility] [address] [address] [place] [address] Jemal Miller III, MD 200 [facility] [place] [address] 12/30/2024 3:15 PM EDT Office Visit Urology Jesse [facility] [address] [place] [address] Oneil Ball MD 27 [place] [address] 01/27/2025 8:00 AM EDT Office Visit Cardiology, [facility] [address] [place] [address] Wilfrido Figueroa MD 132 [place] [address] Scheduled Orders Name Type Priority Associated Diagnoses Orde r Schedule BASIC METABOLIC PANEL Lab Routine HTN, goal below 140/90 Expected: 08/06/2024 (Approximate), Expires: 08/06/2025 Scheduled Procedures Name Priority Associated Diagnoses Date/Ti [...] 06/18/2025 06/18/2024, 05/06, 08/02/2022, Additional history exists GFR 07/26/2025 07/26/2024, 12/04, 07/24/2023, Additional history exists HbA1c 07/26/2025 07/26/2024, 06/06, 12/05/2023, Additional history exists Albumin/Creatinine Ratio 07/22/202707/22/2 024, 07/06/2024, 07/24/2023, Additional history exists DTap/Tdap [...] this encounter Medical Devices Implanted Type Area Yacht Master Device Identifier Shelf Expiration Date Model / Serial / Lot 28 Mm X 30 Cm Gelweave Gelatin Impregnated Woven Vascular Prosthesis Implanted:Qty: 1 on 12/09/2022 by Filiberto Russo MD at [place] [facility] [place] Graft N/A: Aorta [employer] : VASCUTEK [id number] 03/05/2025 [id number] / [id number] 1 / [id number] Suture Steel 6 B&S19 M654g - [id number] Implanted:Qty: 4 on 12/09/2022 by Filiberto Russo MD at [place] [facility] [place] N/A: Sternum JNJ : [employer] 09/04/2027 M654G / / [id number] Suture Steel 6 B&S19 M654g - [id number] Implanted:Qty: 4 on 12/09/2022 by Filiberto Russo MD at [place] [facility] [place] N/A: Sternum JNJ : [employer] 08/05/2027 M654G / / SMBEEL Marker Coronary - [id number] Implanted:Qty: 1 on 12/09/2022 by Filiberto Russo MD at [place] [facility] [place] N/A: Heart [employer] 09/04/2025 [facility] / / [id number] documented as of this encounter Visit Diagnoses Diagnosis HTN, goal below 140/90- Primary Unspecified essential hypertension documented in this encounter Advance Directives Documents on File Type Date Recorded Patient Control Panel Tester Expl anation Advance Directives and Living Will [...] Agen t (per Health Care Power of Switch Operator document) Tyler Rosas Adult Child Second Alternate Health Care Agent (per Health Care Power of Switch Operator document) Care Teams Physical Damage Appraiser Relationship Specialty Start Date End Date Jemal Miller III, MD 200 [place] [address] PCP - General 05/20/1996 documented as of this encounter
--- OUTSIDE RECORDS SUMMARY | 2024-09-12 06:36 | External Medical Summary | Summary of Care ---
Author Name Unknown Organization [facility] Address [address] [facility] [place] [address] Phone [phone] Care Team Providers Care Junior Network Administrator Name Role Phone Angela MCFARLANE MD, Jemal Li Primary Care Provider [phone] Reason for Visit * Reason Onset Date Comments Advice 08/04/2024 Encounter Details Date Type Department Care Team (Late st Contact Info) Description 08/04/2024 Telephone Family Practice [facility] [place] 200 [facility] [place] [address] Jemal Miller III, MD 200 [facility] [address] Advice Allergies No known active allergiesdocumented as [...] repair 12/14/2022 Coronary artery disease invo lving [place] coronary artery of [place] heart with angina pectoris 12/09/2022 Impaired fasting glucose 11/27/2022 Nontraumatic tear of right rotator cuff 11/27/19 Ascending aortic aneurysm 11/27/2022 Body mass index (BMI) of 40.0 to 44.9 in adult 0 02/13/2021 Overview: Per Obesity protocol Morbid obesity due to excess calories 04/24/2020 Mild obstructive sleep apnea 11/19/2013 Overview: CPAP 10 cwp 2013 Titration PSG -- CPAP 10 11/2013 PSG -- AHI 12 [facility] BMI 35-39 ISOLATED (SEE ACTUAL [...] Telephone Encounter - Flavia Erwin MD - 08/06/2024 4:25 PM EDT Orders already signed when I opened rx >> pls verify that [facility] * Telephone Encounter - Chayo Espino LPN - 08/06/2024 9:55 AM EDT Pt [facility] will will resend for MD approval MD Pharmacy never received Please resign * Telephone Encounter - Chayo Espino LPN - 08/06/2024 8:51 AM EDT Lab orders placed in [employer] system * Telephone Encounter - Chayo Espino LPN - 08/06/2024 8:48 AM EDT Pt is made aware He will continue to work on BP repeat labs as instructed Of note pt has not received rx on [place] He will call Pharmacy This may need to be reordered Pt will return call to see if this is needed Dr Miller Can you speak with [facility] * Telephone Encounter - Chayo Espino LPN - 08/06/2024 8:42 AM EDT Lab orders placed in [employer] system * Telephone Encounter - Jemal Miller III, MD - 08/06/2024 8:15 AM EDT Thanks * Telephone Encounter - Flavia Erwin MD - 08/05/2024 1:08 PM EDT Images from the original note were not included. [facility] labs reviewed: Baseline creatinine 1.1-1.2; here creat slightly worse than baseline but not severe, does not meet DEON criteria. Do not believe renal function/creatinine in 1.4 range should preclude surgery. -continue work to control HTN (see last note) -repeat BMP in 10 days Neph nurse pls update pt; pls [place] [facility] [place] Meghana DELCID * Telephone Encounter - Jemal Miller III, MD - 08/04/2024 11:06 AM EDT Any further concerns recommendations * Telephone Encounter - Ellyn Dillard LPN - 08/04/2024 9:49 AM EDT Vivi Anesthesiologist from [facility] surgical team. Wants to make Jemal Miller III, MD aware of patients creatinine results from 07/26. CREATININE 0.6 - 1.4 MG/DL 1.41 Abnormal Patient has Right shoulder surgery scheduled on 09/10/24. Please advice. documented in this encounter Plan of Treatment Upcoming Encounters Date Type Department Care Team (Late st Contact Info) Description 11/09/2024 8:00 AM EST Office Visit Nephrology, [facility] 200 [facility] [place] [address] Flavia Erwin MD 200 [facility] [place] [address] 12/14/2024 10:00 AM EDT Imaging Radiology [facility] [address] [facility] [place] [address] 12/24/2024 8:20 AM EDT Office Visit Family Practice [facility] [address] [place] [address] Jemal Miller III, MD 200 [facility] [place] [address] 12/30/2024 3:15 PM EDT Office Visit Urology [facility] [address] [place] [address] Oneil Ball MD [place] [address] 01/27/2025 8:00 AM EDT Office Visit Cardiology, [facility] [address] [place] [address] Wilfrido Figueroa MD 132 [place] [address] Scheduled Orders Name Type Priority Associated Diagnoses [...] this encounter Medical Devices Implanted Type Area Radio Repairer Device Identifier Shelf Expiration Date Model / Serial / Lot 28 Mm X 30 Cm Gelweave Gelatin Impregnated Woven Vascular Prosthesis Implanted:Qty: 1 on 12/09/2022 by Filiberto Russo [place] [facility] [place]raft N/A: Aorta [employer] : VASCUTEK [id number] 03/05/2025 [id number] / [id number] 1 / [id number] Suture Steel 6 B&S19 M654g - [id number] Implanted:Qty: 4 on 12/09/2022 by Filiberto Russo MD [place] [facility] N/A: Sternum JNJ : [employer] 09/04/2027 M654G / / [id number] Suture Steel 6 B&S19 M654g - [id number] Implanted:Qty: 4 on 12/09/2022 by Filiberto Russo MD [place] [facility] N/A: Sternum JNJ : [employer] 08/05/2027 M654G / / SMBEEL Marker Coronary - [id number] Implanted:Qty: 1 on 12/09/2022 by Filiberto Russo MD [place] [facility] N/A: Heart #waywireSEE BIOMEDICAL 09/04/2025 [facility] / / [id number] documented as of this encounter Visit Diagnoses Diagnosis HTN, goal below 140/90- Primary Unspecified essential hypertension documented in this encounter Advance Directives Documents on File Type Date Recorded Patient Heel Seat Trimmer Expl anation Advance Directives and Living Will [...] Agen t (per Health Care Power of Rn Icu document) Tyler Alison Adult Child Second Alternate Health Care Agent (per Health Care Power of Rn Icu document) Care Teams Junior Network Administrator Relationship Specialty Start Date End Date Jemal Miller III, MD 200 [place] [address] PCP - General 05/20/1996 documented as of this encounter
--- OUTSIDE RECORDS SUMMARY | 2024-09-12 06:36 | External Medical Summary | Summary of Care ---
Author Name Unknown Organization [facility] Address [address] [facility] [place] [address] Phone [phone] Care Team Providers Care Mountain Services Manager Name Role Phone Angela MCFARLANE MD, Jemal Li Primary Care Provider [phone] Reason for Visit * Reason Onset Date Comments Advice 08/04/2024 Encounter Details Date Type Department Care Team (Late st Contact Info) Description 08/04/2024 Telephone Family Practice [facility] [place] 200 [facility] [place] [address] Jemal Miller III, MD 200 [facility] [address] Advice Allergies No known active allergiesdocumented as [...] repair 12/14/2022 Coronary artery disease invo lving [place] coronary artery of [place] heart with angina pectoris 12/09/2022 Impaired fasting [...] 8:51 AM EDT Lab orders placed in [employer] lab system * Telephone Encounter - Chayo [...] needed Dr Miller Can you speak with [facility] * Telephone Encounter - Chayo Espino LPN - 08/06/2024 8:42 AM EDT Lab orders placed in [facility] [employer] [facility] lab system * Telephone Encounter - Jemal Miller III, MD - 08/06/2024 8:15 AM EDT Thanks * Telephone Encounter - Flavia Erwin MD - 08/05/2024 1:08 PM EDT Images from the original note were not included. [facility] labs reviewed: Baseline creatinine 1.1-1.2; here creat slightly worse than baseline but not severe, does not meet DEON criteria. Do not believe renal function/creatinine in 1.4 range should preclude surgery. -continue work to control HTN (see last note) -repeat BMP in 10 days Neph nurse pls update pt; pls [place] [facility] [place] Meghana DELCID * Telephone Encounter - Jemal Miller III, MD - 08/04/2024 11:06 AM EDT Any further concerns recommendations * Telephone Encounter - Ellyn Dillard LPN - 08/04/2024 9:49 AM EDT Vivi Anesthesiologist from [facility] surgical team. Wants to make Jemal Miller III, MD aware of patients creatinine results from 07/26. CREATININE 0.6 - 1.4 MG/DL 1.41 Abnormal Patient has Right shoulder surgery scheduled on 09/10/24. Please advice. documented in this encounter Plan of Treatment Upcoming Encounters Date Type Department Care Team (Late st Contact Info) Description 11/09/2024 8:00 AM EST Office Visit Nephrology, [facility] 200 [facility] [place] [address] Flavia Erwin MD 200 [facility] [place] [address] 12/14/2024 10:00 AM EDT Imaging Radiology [facility] 132 [place] [address] 12/24/2024 8:20 AM EDT Office Visit Family Practice [facility] 200 [facility] [address] Jemal Miller III, MD 200 [facility] [place] [address] 12/30/2024 3:15 PM EDT Office Visit Urology [facility] [address] [place] [address] [place] [address] Oneil Ball MD 27 [place] [address] 01/27/2025 8:00 AM EDT Office Visit Cardiology, [facility] 132 [place] [address] Wilfrido Figueroa MD 132 [place] [address] Scheduled Orders Name Type Priority Associated Diagnoses [...] this encounter Medical Devices Implanted Type Area Fulfillment Specialist Device Identifier Shelf Expiration Date Model / Serial / Lot 28 Mm X 30 Cm Gelweave Gelatin Impregnated Woven Vascular Prosthesis Implanted:Qty: 1 on 12/09/2022 by Filiberto Russo [place] [facility] [place] N/A: Aorta [employer] : VASCUTEK [id number] 03/05/2025 [id number] / [id number] 1 / [id number] Suture Steel 6 B&S19 M654g - [id number] Implanted:Qty: 4 on 12/09/2022 by Filiberto Russo [place] [facility] N/A: Sternum JNJ : [employer] 09/04/2027 M654G / / SPBBPK Suture Steel 6 B&S19 M654g - [id number] Implanted:Qty: 4 on 12/09/2022 by Filiberto Russo MD [place] [facility] N/A: Sternum JNJ : [employer] 08/05/2027 M654G / / SMBEEL Marker Coronary - [id number] Implanted:Qty: 1 on 12/09/2022 by Filiberto Russo MD [place] [facility] N/A: Heart [employer] 09/04/2025 [facility] / / [id number] documented as of this encounter Visit Diagnoses Diagnosis HTN, goal below 140/90- Primary Unspecified essential hypertension documented in this encounter Advance Directives Documents on File Type Date Recorded Patient Motor Runner Expl anation Advance Directives and Living Will [...] Agen t (per Health Care Power of Appraisal Coordinator document) Tyler Rosas Adult Child Second Alternate Health Care Agent (per Health Care Power of Appraisal Coordinator document) Care Teams Mountain Services Manager Relationship Specialty Start Date End Date Jemal Miller III, MD 200 [place] [address] PCP - General 05/20/1996 documented as of this encounter
--- OUTSIDE RECORDS SUMMARY | 2024-09-12 06:36 | External Medical Summary | Summary of Care ---
Author Name Unknown Organization [facility] Address [address] [facility] [place] [address] Phone [phone] Care Team Providers Care Cash Application Clerk Name Role Phone Angela MCFARLANE MD, John E Primary Care Provider [phone] Encounter Details Date Type Department Care Team (Late st Contact Info) Description 07/30/2024 Orders Only Family Practice [facility] [place] 200 [facility] [place] [address] Jemal Miller III, MD 200 [facility] [place] [address] Allergies No known active allergiesdocumented as of this encounter (statuses as of 07/30/2024) Medications Medication Sig Dispensed Refills Start Date [...] as of this encounter (statuses as of 07/30/2024) Active Problems Problem Noted Date Diagnosed Date Prediabetes 12/15/2023 Overview: Per Prediabetes protocol 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 S/P ascending aortic aneurysm repair 12/14/2022 Coronary artery disease invo lving [place] coronary artery of [place] heart with angina pectoris 12/09/2022 Impaired fasting glucose 11/27/2022 Nontraumatic tear of right rotator cuff 11/27/19 23 Ascending aortic aneurysm 11/27/2022 Body mass index (BMI) of 40.0 to 44.9 in adult 0 02/13/2021 Overview: Per Obesity protocol Morbid obesity due to excess calories 04/24/2020 Mild obstructive sleep apnea 11/19/2013 Overview: CPAP 2013 Titration PSG -- CPAP 11/2013 PSG -- AHI 12 [facility] BMI 35-39 ISOLATED (SEE ACTUAL BMI) 01/01/2010 Overview: Per Obesity Taxonomy ADVANCE DIRECTIVE INFORMATION 11/26/2005 Overview: No, Advance Directive brochure given to patient. CALCULUS OF KIDNEY-HX 09/09/2002 HTN, goal below 140/90 12/02/2000 documented as of this encounter (statuses as of 07/30/2024) Resolved Problems Problem Noted Date Diagnosed Date Resolved Date Diabetes mellitus 12/14/2022 10/09/2023 Tear of right rotator cuff 11/08/2022 0 11/08/2022 Prediabetes 05/19/2018 12/18/2022 Overview: Per Prediabetes protocol #1 - OBESITY, UNSPECIFIED 010 Overview: Per Obesity Taxonomy documented as of this encounter (statuses as of 07/30/2024) Immunizations Name Administration Dates Next Due Seasonal [...] No 12/09/2022 documented as of this encounter Plan of Treatment Upcoming Encounters Date Type Department Care Team (Late st Contact Info) Description 11/09/2024 8:00 AM EST Office Visit [place], [facility] [place] [place] [address] [place] [address] [address] Flavia Erwin MD [address] [place] [address] [place] [address] 12/14/2024 10:00 AM EDT Imaging Radiology [facility] 132 [place] [address] 12/24/2024 8:20 AM EDT Office Visit Family Practice [facility] [place] [address] [place] [address] [address] Jemal Miller III, MD [address] [place] [address] [place] [address] 12/30/2024 3:15 PM EDT Office Visit Urology [facility] [address] [place] [address] [place] [address] Oneil Ball MD [address] [place] [address] 01/27/2025 8:00 AM EDT Office Visit Cardiology, [facility] [address] [place] [address] Wilfrido Figueroa MD [address] [place] [address] Scheduled Procedures Name Priority Associated Diagnoses Date/Ti [...] exists Depression Screening 06/12/2024 06/12/2023 GFR 12/18/2024 07/26/2024, 12/04, 07/24/2023, Additional history exists B-12 06/18/2025 06/18/2024, 05/06, 08/02/2022, Additional history exists HbA1c 06/18/2025 07/26/2024, 06/06, 12/05/2023, Additional history exists Albumin/Creatinine [...] this encounter Medical Devices Implanted Type Area Environmental Epidemiologist Device Identifier Shelf Expiration Date Model / Serial / Lot 28 Mm X 30 Cm Gelweave Gelatin Impregnated Woven Vascular Prosthesis Implanted:Qty: 1 on 12/09/2022 by Filiberto Russo MD at [place] [facility] [place] Graft N/A: Aorta [employer] : VASCUTEK [id number] 03/05/2025 [id number] / [id number] 1 / [id number] Suture Steel 6 B&S19 M654g - [id number] Implanted:Qty: 4 on 12/09/2022 by Filiberto Russo MD at [place] [facility] [place] N/A: Sternum JNJ : [employer] 09/04/2027 M654G / / SPBBPK Suture Steel 6 B&S19 M654g - [id number] Implanted:Qty: 4 on 12/09/2022 by Filiberto Russo MD at [place] [facility] N/A: Sternum JNJ : [employer] 08/05/2027 M654G / / SMBEEL Marker Coronary - [id number] Implanted:Qty: 1 on 12/09/2022 by Filiberto Russo MD at [place] [facility] N/A: Heart SkeebleSEE [employer]OM[employer] 09/04/2025 [facility] / / [id number] documented as of this encounter Procedures Procedure Name Priority Date/Time Associated Diagnosis Comments CHEMISTRY-OUTSIDE Routine 07/26/2024 documented in this encounter Results * (ABNORMAL) CHEMISTRY-OUTSIDE (07/26/2024) Not all results display below - see scan for full detail SCAN INCLUDES: HA1C, BMP, CBCD, PT INR, PTT OUTSIDE LAB (SEE SCANNED REPORT) CREATININE 1.41(A) 0.6 - 1.4 MG/DL OUTSIDE LAB (SEE SCANNED REPORT) EGFR 55.30 OUTSIDE LA B (SEE SCANNED REPORT) POTASSIUM 4.1 3.5 - 5.1 MMOL/L OUTSIDE LAB (SEE SCANNED REPORT) GLUCOSE 111(A) 70 - 99 MG/DL OUTSIDE LAB (SEE SCANNED REPORT) HOURS FASTING OUTSID E LAB (SEE SCANNED REPORT) TRIGLYCERIDES-OUT SIDE LAB OUTSIDE LAB (SEE SCANNED REPORT) CHOLESTEROL-OUTSI DE LAB OUTSIDE LAB (SEE SCANNED REPORT) HDL-OUTSIDE LAB OUTS [place] LAB (SEE SCANNED REPORT) CHOL/HDL RATIO-OUTSIDE LAB OUTSIDE LA B (SEE SCANNED REPORT) LDL (CALCULATED)-OUTS [place] LAB OUTSIDE LAB (SEE SCANNED REPORT) LDL (DIRECT MEASURE)-OUTSIDE LAB OUTSIDE LAB (SEE SCANNED REPORT) HEMOGLOBIN, B6V-VGFHGYJ LAB 6.4(A) 4.5 - 5.6 % OUTSIDE LAB (SEE SCANNED REPORT) PHOSPHORUS-OUTSID E LAB OUTSIDE LAB (SEE SCANNED REPORT) PTH-OUTSIDE LAB OUTS [place] LAB (SEE SCANNED REPORT) MICROALBUMIN RATIO-OUTSIDE LAB OUTSIDE LA B (SEE SCANNED REPORT) PROTEIN, UA-OUTSIDE LAB OUTSIDE LAB (SEE SCANNED REPORT) HGB 14.4 14.0 - 18.0 G/DL OUTSIDE LAB (SEE SCANNED REPORT) 07/26/2024 Ian Swain DO LABORATORY OUTSIDE LAB (SEE SCANNED REPORT) documented in this encounter Advance Directives Documents on File Type Date Recorded Patient Specification Manager Expl anation Advance Directives and Living [...] Caroline murray (per Health Care Power of Hot Metal Mixer Operator Helper document) Tyler Rosas Adult Child Second Alternate Health Care Agent (per Health Care Power of Hot Metal Mixer Operator Helper document) Care Teams Cash Application Clerk Relationship Specialty Start Date End Date Jemal Miller III, MD 200 [facility] [place] [address] PCP - General 05/20/1996 documented as of this encounter
--- OUTSIDE RECORDS SUMMARY | 2024-09-12 06:36 | External Medical Summary | Summary of Care ---
Author Name Unknown Organization [facility] Address [address] [facility] [address] Phone [phone] Care Team Providers Care Taper And Floater Name Role Phone Angela MCFARLANE MD, Jemal Li Primary Care Provider [phone] Reason for Visit * Reason Comments Outpatient Testing Encounter Details Date Type Department Care Team (Late st Contact Info) Description 08/19/2024 7:00 AM EST Laboratory [facility] [place] [address] [place] [id number] [place], Lab Scenery [address] [place] [address] HTN, goal below 140/90 Allergies No known active allergiesdocumented as of this encounter (statuses as of 08/19/2024) Medications MULTIVITAMIN/WI NERAL FORMULA OR TABS 1 TABLET DAILY [...] as of this encounter (statuses as of 08/19/2024) Active Problems Problem Noted Date Diagnosed Date Prediabetes 12/15/2023 Overview: Per Prediabetes protocol 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 S/P ascending aortic aneurysm repair 12/14/2022 Coronary artery disease invo lving [place] coronary artery of [place] heart with angina pectoris 12/09/2022 Impaired fasting glucose 11/27/2022 Nontraumatic tear of right rotator cuff 11/27/19 23 Ascending aortic aneurysm 11/27/2022 Body mass index (BMI) of 40.0 to 44.9 in adult 0 02/13/2021 Overview: Per Obesity protocol Morbid obesity due to excess calories 04/24/2020 Mild obstructive sleep apnea 11/19/2013 Overview (05/18/2015): CPAP 2013 Titration PSG -- CPAP 10 11/2013 PSG -- AHI 12 [facility] BMI 35-39 ISOLATED (SEE ACTUAL BMI) 01/01/2010 Overview (01/01/2010): Per Obesity Taxonomy CALCULUS OF KIDNEY-HX 09/09/2002 HTN, goal below 140/90 12/02/2000 documented as of this encounter (statuses as of 08/19/2024) Resolved Problems Problem Noted Date Diagnosed Date Resolved Date Diabetes mellitus 12/14/2022 10/09/2023 Tear of right rotator cuff 11/08/2022 0 11/08/2022 Prediabetes 05/19/2018 12/18/2022 Overview: Per Prediabetes protocol #1 - ADVANCE DIRECTIVE INFORMATION 11/26/2005 08/09/2024 Overview (11/26/2005): No, Advance Directive brochure given to patient. OBESITY, UNSPECIFIED 010 Overview (01/01/2010): Per Obesity Taxonomy documented as of this encounter (statuses as of 08/19/2024) Immunizations Name Administration Dates Next Due Seasonal [...] Perla Arce RN documented in this encounter Plan of Treatment Upcoming Encounters Date Type Department Care Team (Late st Contact Info) Description 11/09/2024 8:00 AM EST Office Visit Nephrology, [facility] [address] [place] [address] [address] Flavia Erwin MD [address] [place] [address] [address] 12/14/2024 10:00 AM EDT Imaging Radiology [facility] [address] [place] [address] 12/24/2024 8:20 AM EDT Office Visit [facility] 200 [facility] [place] [address] Jemal Miller III, MD [address] [place] [address] 12/30/2024 3:15 PM EDT Office Visit Urology [facility] [address] [place] [address] Oneil Ball MD 27 [place] [address] 01/27/2025 8:00 AM EDT Office Visit Cardiology, [facility] [address] [place] [address] Wilfrido Figueroa MD [address] [place] [address] Pending Results Name Type Priority Associated Diagnoses Date /Time BASIC METABOLIC PANEL Lab Routine HTN, goal below 140/90 08/19/2024 7:06 AM EST Scheduled Procedures Name Priority Associated Diagnoses Date/Ti [...] 06/06, 12/05/2023, Additional history exists Albumin/Creatinine Ratio 07/22/2027 024, [...] this encounter Medical Devices Implanted Type Area Wide Area Network Administrator Device Identifier Shelf Expiration Date Model / Serial / Lot 28 Mm X 30 Cm Gelweave Gelatin Impregnated Woven Vascular Prosthesis Implanted:Qty: 1 on 12/09/2022 by Filiberto Russo MD [place] [facility] Graft N/A: Aorta [employer] : VASCUTEK [id number] 03/05/2025 [id number] / [id number] Suture Steel 6 B&S19 M654g - [id number] Implanted:Qty: 4 on 12/09/2022 by Filiberto Russo MD [place] [facility] N/A: Sternum GEOVANNI : [employer] 09/04/2027 M654G / / SPBBPK Suture Steel 6 B&S19 M654g - [id number] Implanted:Qty: 4 on 12/09/2022 by Filiberto Russo MD [place] [facility] N/A: Sternum JNJ : [employer] 08/05/2027 M654G / / SMBEEL Marker Coronary - [id number] Implanted:Qty: 1 on 12/09/2022 by Filiberto Russo MD [place] [facility] N/A: Heart [employer] 09/04/2025 [facility] / / [id number] documented as of this encounter Visit Diagnoses Diagnosis HTN, goal below 140/90 Unspecified essential hypertension documented in this encounter Advance Directives Documents on File Type Date Recorded Patient Produce Assistant Expl anation Advance Directives and Living Will [...] Cheikh Rosas Adult Child Health Care Caroline t (per Health Care Power of Paramedic Rn document) Tyler Rosas Adult Child [facility] Alternate Health Care Agent (per Health Care Power of Paramedic Rn document) Care Teams Taper And Floater Relationship Specialty Start Date End Date Jemal Miller III, MD 200 [facility] [place] [address] PCP - General 05/20/1996 documented as of this encounter
--- OUTSIDE RECORDS SUMMARY | 2024-09-12 06:36 | External Medical Summary | Summary of Care ---
Author Name Unknown Organization [facility] Address [address] [facility] [place] [address] Phone [phone] Care Team Providers Care Pipefitter Name Role Phone Angela MCFARLANE MD, Jemal Li Primary Care Provider [phone] Reason for Visit * Reason Onset Date Comments Advice 08/04/2024 Encounter Details Date Type Department Care Team (Late st Contact Info) Description 08/04/2024 Telephone Family Practice [facility] [place] [address] [facility] [place] [address] Jemal Miller III, MD [address] [facility] [address] Advice Allergies No known active allergiesdocumented as [...] repair 12/14/2022 Coronary artery disease invo lving [place] coronary artery of [place] heart with angina pectoris 12/09/2022 Impaired fasting [...] 8:51 AM EDT Lab orders placed in [employer] system * Telephone Encounter - Chayo Espino LPN - 08/06/2024 8:48 AM EDT Pt is made aware He will continue to work on BP repeat labs as instructed Of note pt has not received rx on [place] He will call Pharmacy This may need to be reordered Pt will return call to see if this is needed Dr Miller Can you speak with [facility] * Telephone Encounter - Chayo Espino LPN - 08/06/2024 8:42 AM EDT Lab orders placed in [employer] system * Telephone Encounter - Jemal Miller III, MD - 08/06/2024 8:15 AM EDT Thanks * Telephone Encounter - Flavia Erwin MD - 08/05/2024 1:08 PM EDT Images from the original note were not included. [facility] labs reviewed: Baseline creatinine 1.1-1.2; here creat slightly worse than baseline but not severe, does not meet DEON criteria. Do not believe renal function/creatinine in 1.4 range should preclude surgery. -continue work to control HTN (see last note) -repeat BMP in 10 days Neph nurse pls update pt; pls contact [facility] anesthesia Dr Meghana DELCID * Telephone Encounter - Jemal Miller III, MD - 08/04/2024 11:06 AM EDT Any further concerns recommendations * Telephone Encounter - Ellyn Dillard LPN - 08/04/2024 9:49 AM EDT Vivi Anesthesiologist from [facility] surgical team. Wants to make Jemal Miller III, MD aware of patients creatinine results from 07/26. CREATININE 0.6 - 1.4 MG/DL 1.41 Abnormal Patient has Right shoulder surgery scheduled on 09/10/24. Please advice. documented in this encounter Plan of Treatment Upcoming Encounters Date Type Department Care Team (Late st Contact Info) Description 11/09/2024 8:00 AM EST Office Visit Nephrology, [facility] 200 [facility] [place] [address] Flavia Erwin MD 200 [facility] [place] [address] 12/14/2024 10:00 AM EDT Imaging Radiology [facility] 132 [facility] [place] [address] 12/24/2024 8:20 AM EDT Office Visit Family Practice [facility] [address] [place] [address] Jemal Miller III, MD 200 [facility] [place] [address] 12/30/2024 3:15 PM EDT Office Visit Urology [facility] [address] [place] [address] Oneil Ball MD [place] [address] 01/27/2025 8:00 AM EDT Office Visit Cardiology, [facility] [address] [place] [address] Wilfrido Figueroa MD 132 [place] [address] Scheduled Orders Name Type Priority Associated Diagnoses [...] this encounter Medical Devices Implanted Type Area Scoring Machine Operator Device Identifier Shelf Expiration Date Model / Serial / Lot 28 Mm X 30 Cm Gelweave Gelatin Impregnated Woven Vascular Prosthesis Implanted:Qty: 1 on 12/09/2022 by Filiberto Russo [place] [facility] Graft N/A: Aorta [employer] : VASCUTEK [id number] 03/05/2025 [id number] / [id number] 1 / [id number] Suture Steel 6 B&S19 M654g - [id number] Implanted:Qty: 4 on 12/09/2022 by Filiberto Russo [place] [facility] N/A: Sternum JNJ : [employer] 09/04/2027 M654G / / SPBBPK Suture Steel 6 B&S19 M654g - [id number] Implanted:Qty: 4 on 12/09/2022 by Filiberto Russo MD [place] [facility] N/A: Sternum JNJ : [employer] 08/05/2027 M654G / / SMBEEL Marker Coronary - [id number] Implanted:Qty: 1 on 12/09/2022 by Filiberto Russo MD [place] [facility] N/A: Heart [employer] 09/04/2025 [facility] / / [id number] documented as of this encounter Visit Diagnoses Diagnosis HTN, goal below 140/90- Primary Unspecified essential hypertension documented in this encounter Advance Directives Documents on File Type Date Recorded Patient Carton And Can Supply Supervisor Expl anation Advance Directives and Living Will [...] Agen t (per Health Care Power of Caramel Maker document) Tyler Alison Adult Child Second Alternate Health Care Agent (per Health Care Power of Caramel Maker document) Care Teams Pipefitter Relationship Specialty Start Date End Date Jemal Miller III, MD 200 [place] [address] PCP - General 05/20/1998 documented as of this encounter
--- OUTSIDE RECORDS SUMMARY | 2024-09-12 06:36 | External Medical Summary | Summary of Care ---
Author Name Unknown Organization [facility] Address [address] [facility] [address] Phone [phone] Care Team Providers Care Assisted Living Home Director Name Role Phone nAgela MCFARLANE MD, Jemal Li Primary Care Provider [phone] Reason for Visit * Reason Comments New Problem Left knee aspiration * Evaluate & Treat - Unlimited Visits (Within 10 days (routine)) - Closed Specialty Diagnoses / Procedures Referred By Darrius murray Referred To Contact Sports Medicine / Orthopedics Diagnoses Knee effusion, left Nolan Lanza PA-C [address] [place] [address] Phone: tel: fax: Referral ID Status Reason Start Date Expiration Date V isits Requested Visits Authorized [id number] Closed Specialty Services Required 02/04/[phone] Encounter Details Date Type Department Care Team (Late st Contact Info) Description 02/17/2024 9:00 AM EDT Office Visit Orthopaedics [facility] [address] [place] [address] Arnel iWlson MD [address] [place] [id number] Knee effusion, left* Allergies No known active allergiesdocumented as of this encounter (statuses as of 08/16/2024) Medications MULTIVITAMIN/M INERAL FORMULA OR TABS 1 TABLET DAILY 30 0 09/09/20 02 Active ASPIRIN 81 MG PO TABS Take 1 Tablet by mouth in the morning. Active Acetaminophen 500 MG Oral Tablet Take 2 Tablets by mouth in the morning and 2 Tablets in the evening. Use for pain in shoulder.. Active metFORMIN HCl ER 500 MG Oral Tablet Extended Release 24 Hour (Glucophage XR) Take 1 Tablet by mouth in the morning. With breakfast x 2 weeks the 2 daily with breakfast. 180 Tablet 3 03/18/20 23 024 Discontinued Empagliflozin 10 MG Oral Tablet (Jardiance) Take 1 Tablet by mouth in the morning. 90 Tablet 3 07/01/20 23 024 Discontinued(Re fill) Furosemide 20 MG Oral Tablet (Lasix)Indicat ions:HTN, goal below 140/90,Dyslipi demia, goal LDL below 70,S/P CABG x 2,S/P ascending aortic aneurysm repair Take 1 Tablet by mouth once a day on Friday, Friday, and Friday only. 36 Tablet 5 07/04/20 23 024 Discontinued(Re fill) Metoprolol Succinate ER 50 MG Oral Tablet Extended Release 24 Hour (toPROL XL)Indications :HTN, goal below 140/90 TAKE 1.5 TABLETS BY MOUTH IN THE MORNING 135 Tablet 3 07/21/20 23 024 Discontinued Lisinopril 40 MG Oral Tablet Take 1 Tablet by mouth in the morning. 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 (HCC) TAKE 1 TABLET BY MOUTH EVERY DAY EVERY AFTERNOON 90 Tablet 3 01/15/20 24 024 Discontinued(Re fill) documented as of this encounter (statuses as of 08/16/2024) Active Problems Problem Noted Date Diagnosed Date Prediabetes 12/15/2023 Overview: Per Prediabetes protocol 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 S/P ascending aortic aneurysm repair 12/14/2022 Coronary artery disease invo lving [place] coronary artery of [place] heart with angina pectoris 12/09/2022 Impaired fasting [...] CPAP 10 11/2013 PSG -- AHI 12 [facility] BMI 35-39 ISOLATED (SEE ACTUAL BMI) 01/01/2010 Overview (01/01/2010): Per Obesity Taxonomy CALCULUS OF KIDNEY-HX 09/09/2002 HTN, goal below 140/90 12/02/2000 documented as of this encounter (statuses as of 08/16/2024) Resolved Problems Problem Noted Date Diagnosed Date Resolved Date Diabetes mellitus 12/14/2022 10/09/2023 Tear of right rotator cuff 11/08/2022 0 11/08/2022 Prediabetes 05/19/2018 12/18/2022 Overview: Per Prediabetes protocol #1 - ADVANCE DIRECTIVE INFORMATION 11/26/2005 08/09/2024 Overview (11/26/2005): No, Advance Directive brochure given to patient. OBESITY, UNSPECIFIED 010 Overview (01/01/2010): Per Obesity Taxonomy documented as of this encounter (statuses as of 08/16/2024) Immunizations Name Administration Dates Next Due Seasonal [...] Perla Arce RN documented in this encounter Progress Notes * Arnel Wilson MD - 02/17/2024 8:51 AM EDT Here for procedure only visit. Referral for US guided Left knee aspiration from my colleague Nolan Lanza PA-C (orthopedic surgery). Per note from 02/04/2024 and is from aspirate the knee and said typical labs. Patient would then continue to follow with my colleague Nolan Lanza PA-C (orthopedic surgery). Note: Patient reports that his swelling is much less than when he had been referred. However I was able to identify suprapatellar joint recess to offered to perform the aspiration has requested versus delayed due to the small size of the effusion. Patient elected to proceed with procedure. Labs sent for only synovial crystals and cell count as I do not suspect infection and limited volume of aspirate. 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 We discussed that Ballard cyst can decompression cause significant swelling within the lower extremity. However we also discussed this is unofficial study. Patient was not billed. Depending on further workup may need knee MRI Telephone follow-up to be scheduled with Nolan Lanza PA-C (orthopedic surgery) in approx 1 week Procedure note (knee aspiration), left : Time out: Prior to injection, a time out was called to confirm the administration of appropriate medicine, patient name, procedure and confirm to the best of our ability and knowledge the presence of any necessary risks and benefits. Patient verbalizes understanding. Ultrasound utilized to guide injection Ultrasound required due to patient size (obese) and need to visualize specific joint recess. Reviewed benefits including potential pain reduction and improved function as well as risks including worsening pain or infection in detail with patient and patient verbalizes understanding. Sterile techinique applied. Skin sterilized with alcohol swab. Knee aspirated using 1.5 inch, 18 gauge needle from lateral approach. 10 cc of straw colored fluid aspirated. Knee not injected. Patienttolerated procedure with no significant bleeding or adverse reaction. Patient instructed to call or return to clinic for fever or warmth and redness at injection site for potential infection. Patient also advised as to potential for steroid flare reaction including increased pain and redness at injection site which should be treated with ice and resolve within 24 hours. Arnel Wilson MD documented in this encounter Nursing Notes * Mary Rosas LPN - 02/17/2024 9:01 AM EDT Established patient presents today as aspiration of left knee 10/15 today documented in this encounter Miscellaneous Notes * Addendum Note - Arnel Wilson MD - 08/16/2024 1:55 PM EST Addended by: ARNEL WILSON on: 08/16/2024 01:55 PM Modules accepted: Orders * Addendum Note - Arnel Wilson MD - 02/17/2024 9:32 AM EDT Addended by: ARNEL WILSON on: 02/17/2024 09:32 AM Modules accepted: Orders documented in this encounter Plan of Treatment Upcoming Encounters Date Type Department Care Team (Late st Contact Info) Description 08/16/2024 2:00 PM EST [facility] [place] [facility] [place] [address] Arrived 11/09/2024 8:00 AM EST Office Visit Nephrology, [address] [place] [address] Flavia Erwin MD [address] [place] [address] 12/14/2024 10:00 AM EDT Imaging Radiology [facility] [address] [place] [address] 12/24/2024 8:20 AM EDT Office Visit Family Practice [facility] [address] [facility] [place] [address] Jemal Miller III, MD [address] [facility] [place] [address] 12/30/2024 3:15 PM EDT Office Visit Urology [facility] [address] [place] [address] Oneil Ball MD [address] [place] [address] 01/27/2025 8:00 AM EDT Office Visit Cardiology, [facility] [place] [address] Wilfrido Figueroa MD 132 [place] [address] Scheduled Orders Name Type Priority Associated Diagnoses Orde r Schedule POINT OF CARE US MAJOR JOINT INJECTION, ORTHO Medical Imaging Routine Knee effusion, left Ordered: 02/17/2024 POINT OF CARE US MAJOR JOINT INJECTION, ORTHO Medical Imaging Routine Knee effusion, left Ordered: 08/16/2024 Scheduled Procedures Name Priority Associated Diagnoses Date/Ti [...] this encounter Medical Devices Implanted Type Area Bark Fitter Device Identifier Shelf Expiration Date Model / Serial / Lot 28 Mm X 30 Cm Gelweave Gelatin Impregnated Woven Vascular Prosthesis Implanted:Qty: 1 on 12/09/2022 by Filiberto Russo MD [place] [facility] Graft N/A: Aorta [employer] : VASCUTEK [id number] 03/05/2025 [id number] / [id number] 1 / [id number] Suture Steel 6 B&S19 M654g - [id number] Implanted:Qty: 4 on 12/09/2022 by Filiberto Russo MD [place] [facility] N/A: Sternum JNJ : [employer] 09/04/2027 M654G / / SPBBPK Suture Steel 6 B&S19 M654g - [id number] Implanted:Qty: 4 on 12/09/2022 by Filiberto Russo MD [place] [facility] N/A: Sternum JNJ : [employer] 08/05/2027 M654G / / SMBEEL Marker Coronary - [id number] Implanted:Qty: 1 on 12/09/2022 by Filiberto Russo MD [place] [facility] N/A: Heart [employer] 09/04/2025 [facility] / / [id number] documented as of this encounter Procedures Procedure Name Priority Date/Time Associated Diagnosis Comments MANUAL DIFFERENTIAL, SYNOVIAL FLUID Routine 02/17/2024 9:55 AM EDT Knee effusion, left CELL COUNT WITH DIFFERENTIAL, SYNOVIAL FLUID Routine 02/17/2024 9:55 AM EDT Knee effusion, left CELL COUNT, SYNOVIAL FLUID Routine 02/17/2024 9:55 AM EDT Knee effusion, left CRYSTAL ANALYSIS, BODY FLUID Routine 02/17/2024 9:55 AM EDT Knee effusion, left documented in this encounter Results * MANUAL DIFFERENTIAL, SYNOVIAL FLUID (02/17/2024 9:55 AM EDT) Total Nucleated Cell Count, Fluid 364 cells/uL 02/17/2024 1:30 PM EDT [facility] Neutrophils % 5 0 - 25 % 02/17/2024 1:30 PM EDT [facility] Lymphocytes % 45 0 - 78 % 02/17/2024 1:30 PM EDT [facility] Monocytes % 41 0 - 71 % 02/17/2024 1:30 PM EDT [facility] Lining Cells % 9 % 02/17/2024 1:30 PM EDT [facility] Absolute Neutrophils 18.20 cells/uL 02/17/2024 1:30 PM EDT [facility] Absolute Lymphocytes 163.80 cells/uL 02/17/2024 1:30 PM EDT [facility] Absolute Monocytes 149.24 cells/uL 02/17/2024 1:30 PM EDT [facility] Absolute Lining Cells 32.76 cells/uL 02/17/2024 1:30 PM EDT [facility] Synovial Fluid Structure of left knee region / Unknown Non-blood Collection / Unknown 02/17/2024 9:55 AM EDT 02/17/2024 9:56 AM EDT Narrative [facility] - 02/17/2024 1:30 PM EDT Reference ranges are for joints without prior surgery. Some reference ranges and other method performance specifications have not been established for this fluid. The test results must be integrated into the clinical context for interpretation. Arnel Wilson MD LAB FLUID AND STOOL ORDERABLES Final Result Performing Organization Address [facility] Co de Phone Number LAB[facility]ATORY [facility] [address] [place] [address] * (ABNORMAL) CELL COUNT, SYNOVIAL FLUID (02/17/2024 9:55 AM EDT) Color, Fluid Yellow Straw, Yellow, Colorless 02/17/2024 1:20 PM EDT [facility] Clarity, Fluid Cloudy(A) Clear 02/17/2024 1:20 PM EDT [facility] Total Nucleated Cell Count, Fluid 364(H) 0 - 180 cells/uL 02/17/2024 1:20 PM EDT [facility] RBC, Fluid 6,305(H) <2,000 cells/uL 02/17/2024 1:20 PM EDT [facility] Synovial Fluid Structure of left knee region / Unknown Non-blood Collection / Unknown 02/17/2024 9:55 AM EDT 02/17/2024 9:56 AM EDT Narrative [facility] - 02/17/2024 1:20 PM EDT Reference ranges are for joints without prior surgery. Some reference ranges and other method performance specifications have not been established for this fluid. The test results must be integrated into the clinical context for interpretation. Arnel Wilson MD LAB FLUID AND STOOL ORDERABLES Final Result Performing Organization Address City/[facility]/ZIP Co de Phone Number LAB[facility]ATORY [facility] [address] [place] [address] * (ABNORMAL) CRYSTAL ANALYSIS, BODY FLUID (02/17/2024 9:55 AM EDT) Color, Fluid Yellow Straw, Yellow, Colorless 02/17/2024 3:18 PM EDT [facility] Clarity, Fluid Cloudy(A) Clear 02/17/2024 3:18 PM EDT [facility] Crystals, Stained Preparation No Crystals Present No Crystals Present 02/17/2024 3:18 PM EDT [facility] Crystals, Wet Preparation No Crystals Present No Crystals Present 02/17/2024 3:18 PM EDT [facility] Crystals, Intracellular/E xtracellular No Crystals Present No Crystals Present 02/17/2024 3:18 PM EDT [facility] Synovial Fluid Structure of left knee region / Unknown Non-blood Collection / Unknown 02/17/2024 9:55 AM EDT 02/17/2024 9:56 AM EDT us Arnel Wilson MD LAB FLUID AND STOOL ORDERABLES Final Result Performing Organization Address [facility] Co de Phone Number [facility] [address] [place] [address] documented in this encounter Visit Diagnoses Diagnosis Knee effusion, left- Primary Effusion of lower leg joint documented in this encounter Advance Directives Documents on File Type Date Recorded Patient Curve Cleaner Expl anation Advance Directives and Living Will [...] Agen t (per Health Care Power of Turkish Line Attendant document) Tyler Rosas Adult Child Second Alternate Health Care Agent (per Health Care Power of [place] Line Attendant document) Care Teams Assisted Living Home Director Relationship Specialty Start Date End Date Jemal Miller III, MD [address] [place] [address] PCP - General 05/20/1996 documented as of this encounter
--- OUTSIDE RECORDS SUMMARY | 2024-09-12 06:36 | External Medical Summary | Summary of Care ---
Author Name Unknown Organization [facility] [address] [facility] [place] [address] Phone [phone] Care Team Providers Care Grain Mill Products Inspector Name Role Phone Angela MCFARLANE MD, Jemal Li Primary Care Provider [phone] Reason for Visit * Reason Onset Date Comments Advice 08/04/2024 Encounter Details Date Type Department Care Team (Late st Contact Info) Description 08/04/2024 Telephone Family Practice [facility] [place] [address] [facility] [place] [address] Jemal Miller III, MD [facility] [address] Advice Allergies No known active allergiesdocumented as [...] repair 12/14/2022 Coronary artery disease invo lving [place] coronary artery of [place] heart with angina pectoris 12/09/2022 Impaired fasting glucose 11/27/2022 Nontraumatic tear of right rotator cuff 11/27/19 Ascending aortic aneurysm 11/27/2022 Body mass index (BMI) of 40.0 to 44.9 in adult 0 02/13/2021 Overview: Per Obesity protocol Morbid obesity due to excess calories 04/24/2020 Mild obstructive sleep apnea 11/19/2013 Overview: CPAP 10 cwp 2013 Titration PSG -- CPAP 10 11/2013 PSG -- AHI 12 [facility] BMI 35-39 ISOLATED (SEE ACTUAL BMI) [...] encounter Miscellaneous Notes * Telephone Encounter - Cintia Quinones RN - 08/06/2024 4:31 PM EDT Received as verified by pharmacy. * Telephone Encounter - Flavia Erwin MD [...] 8:51 AM EDT Lab orders placed in [facility] lab system * Telephone Encounter - Chayo [...] needed Dr Miller Can you speak with [facility] * Telephone Encounter - Chayo Espino LPN - 08/06/2024 8:42 AM EDT Lab orders placed in [facility] system * Telephone Encounter - Jemal Miller III, MD - 08/06/2024 8:15 AM EDT Thanks * Telephone Encounter - Flavia Erwin MD - 08/05/2024 1:08 PM EDT Images from the original note were not included. [facility] labs reviewed: Baseline creatinine 1.1-1.2; here creat slightly worse than baseline but not severe, does not meet DEON criteria. Do not believe renal function/creatinine in 1.4 range should preclude surgery. -continue work to control HTN (see last note) -repeat BMP in 10 days Neph nurse pls update pt; pls contact [facility] anesthesia Dr Meghana DELCID * Telephone Encounter - Jemal Miller III, MD - 08/04/2024 11:06 AM EDT Any further concerns recommendations * Telephone Encounter - Ellyn Dillard LPN - 08/04/2024 9:49 AM EDT Vivi Anesthesiologist from [facility] surgical team. Wants to make Jemal Miller III, MD aware of patients creatinine results from 07/26. CREATININE 0.6 - 1.4 MG/DL 1.41 Abnormal Patient has Right shoulder surgery scheduled on 09/10/24. Please advice. documented in this encounter Plan of Treatment Upcoming Encounters Date Type Department Care Team (Late st Contact Info) Description 11/09/2024 8:00 AM EST Office Visit Nephrology, [facility] [address] [place] [place] [address] Flavia Erwin MD 200 [facility] [place] [address] 12/14/2024 10:00 AM EDT Imaging Radiology [facility] [address] [place] [address] 12/24/2024 8:20 AM EDT Office Visit Family Practice [facility] [address] [place] [address] [address] Jemal Miller III, MD 200 [facility] [place] [address] 12/30/2024 3:15 PM EDT Office Visit Urology [facility] [address] [place] [address] Oneil Ball MD [address] [place] [address] 01/27/2025 8:00 AM EDT Office Visit Cardiology, [facility] [address] [place] [address] Wilfrido Figueroa MD [address] [place] [address] Scheduled Orders Name Type Priority Associated Diagnoses [...] this encounter Medical Devices Implanted Type Area Construction Supervisor/Carpenter Device Identifier Shelf Expiration Date Model / Serial / Lot 28 Mm X 30 Cm Gelweave Gelatin Impregnated Woven Vascular Prosthesis Implanted:Qty: 1 on 12/09/2022 by Filiberto Russo MD at OR [facility] Graft N/A: Aorta [employer] : VASCUTEK [id number] 03/05/2025 [id number] / [id number] / [id number] Suture Steel 6 B&S19 M654g - [id number] Implanted:Qty: 4 on 12/09/2022 by Filiberto Russo MD at OR [facility] N/A: Sternum JNJ : [employer] 09/04/2027 M654G / / [id number] Suture Steel 6 B&S19 M654g - [id number] Implanted:Qty: 4 on 12/09/2022 by Filiberto Russo MD at OR [facility] N/A: Sternum JNJ : [employer] 08/05/2027 M654G / / SMBEEL Marker Coronary - [id number] Implanted:Qty: 1 on 12/09/2022 by Filiberto Russo MD at OR [facility] N/A: Heart TokopediaSEE BIOMED[employer] 09/04/2025 [facility] / / [id number] documented as of this encounter Visit Diagnoses Diagnosis HTN, goal below 140/90- Primary Unspecified essential hypertension documented in this encounter Advance Directives Documents on File Type Date Recorded Patient Value Advisor Expl anation Advance Directives and Living Will [...] Caroline murray (per Health Care Power of Deputy Fire Marshal document) Tyler Rosas Adult Child Second Alternate Health Care Agent (per Health Care Power of Deputy Fire Marshal document) Care Teams Grain Mill Products Inspector Relationship Specialty Start Date End Date Jemal Miller III, MD 200 [place] [address] PCP - General 05/20/1996 documented as of this encounter
--- OUTSIDE RECORDS SUMMARY | 2024-09-12 06:36 | External Medical Summary ---
Author Name Unknown Address Unknown Organization K09:[facility] [place] [address] Laboratory Report Ordering Provider Test Date Status MARILUZ PAULA 08/19/2024 07:06:05 Final Observation Date Value Abnormality Reference (Units ) Status BUN 08/19/2024 07:06:05 28 Above high normal 6-20 (mg/dL) Final Creatinine 08/19/2024 07:06:05 1.4 Above high normal 0.6-1.2 (mg/dL) Final Glomerular filtration rate/1.73 sq M.predicted [Volume Rate/Area] in Serum, Plasma or Blood by Creatinine-based formula (CKD-EPI) 08/19/2024 07:06:05 55 Below low normal >=60 (mL/min) Final eGFR is calculated based on the CKD-EPI 2020 equation. Sodium 08/19/2024 07:06:05 140 135-146 (m mol/L) Final Potassium 08/19/2024 07:06:05 3.9 3.5-5.1 (m mol/L) Final Cl 08/19/2024 07:06:05 99 98-107 (mm ol/L) Final CO2 08/19/2024 07:06:05 29 22-32 (mmo l/L) Final Anion gap 08/19/2024 07:06:05 12 7-15 (mmol /L) Final Glucose 08/19/2024 07:06:05 126 Above high normal 70 -120 (mg/dL) Final Calcium 08/19/2024 07:06:05 9.8 8.4-10.2 ( mg/dL) Final Performing Location [facility] [place] [address]
--- OUTSIDE RECORDS SUMMARY | 2024-09-12 06:36 | External Medical Summary | Summary of Care ---
Author Name Unknown Organization [facility] Address [address] [facility] [address] Phone [phone] Care Team Providers Care Software Applications Engineer Name Role Phone Angela MCFARLANE MD, Jemal Li Primary Care Provider [phone] Reason for Visit * Reason Onset Date Comments Test Results 08/17/2024 Encounter Details Date Type Department Care Team (Late st Contact Info) Description 08/17/2024 Telephone Nephrology, [facility] 200 [facility] [place] [address] Flavia Erwin MD 200 [facility] [place] [address] Test Results Allergies No known active allergiesdocumented as of this encounter (statuses as of 08/17/2024) Medications MULTIVITAMIN/CA NERAL FORMULA OR TABS 1 TABLET DAILY [...] as of this encounter (statuses as of 08/17/2024) Active Problems Problem Noted Date Diagnosed Date Prediabetes 12/15/2023 Overview: Per Prediabetes protocol 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 S/P ascending aortic aneurysm repair 12/14/2022 Coronary artery disease invo lving [place] coronary artery of [place] heart with angina pectoris 12/09/2022 Impaired fasting [...] CPAP 10 11/2013 PSG -- AHI 12 [facility] BMI 35-39 ISOLATED (SEE ACTUAL BMI) 01/01/2010 Overview (01/01/2010): Per Obesity Taxonomy CALCULUS OF KIDNEY-HX 09/09/2002 HTN, goal below 140/90 12/02/2000 documented as of this encounter (statuses as of 08/17/2024) Resolved Problems Problem Noted Date Diagnosed Date Resolved Date Diabetes mellitus 12/14/2022 10/09/2023 Tear of right rotator cuff 11/08/2022 0 11/08/2022 Prediabetes 05/19/2018 12/18/2022 Overview: Per Prediabetes protocol #1 - ADVANCE DIRECTIVE INFORMATION 11/26/2005 08/09/2024 Overview (11/26/2005): No, Advance Directive brochure given to patient. OBESITY, UNSPECIFIED 010 Overview (01/01/2010): Per Obesity Taxonomy documented as of this encounter (statuses as of 08/17/2024) Immunizations Name Administration Dates Next Due Seasonal [...] Telephone Encounter - Cintia Quinones RN - 08/17/2024 9:03 AM EST Te with pt regarding lab results. States he is noting that his blood pressures are not improving onnew medication. He will have labs repeated as ordered. He is also completing a 3 day bp log. Bp techniques reviewed as well. * Telephone Encounter - Cintia Quinones RN - 08/17/2024 8:59 AM EST ----- Message from Flavia Erwin MD sent at 08/16/2024 10:38 PM EST ----- Proteinuria w/u on blood and urine tests was wnl; no cause found here for proteinuria. Would not biopsy at this time but could consider if clinical status change; pls udpate pt documented in this encounter Plan of Treatment Upcoming Encounters Date Type Department Care Team (Late st Contact Info) Description 11/09/2024 8:00 AM EST Office Visit Nephrology, [facility] 200 [facility] [place] [address] Flavia Erwin MD 200 [facility] [place] [address] 12/14/2024 10:00 AM EDT Imaging Radiology [facility] [address] [facility] [place] [address] 12/24/2024 8:20 AM EDT Office Visit Family Practice [facility] [address] [facility] [place] [address] Jemal Miller III, MD 200 [facility] [place] [address] 12/30/2024 3:15 PM EDT Office Visit Urology [facility] [address] [place] [address] Oneil Ball MD 27 [place] [address] 01/27/2025 8:00 AM EDT Office Visit Cardiology, [facility] [address] [place] [address] Wilfrido Figueroa MD [address] [place] [address] Scheduled Procedures Name Priority Associated Diagnoses Date/Ti [...] this encounter Medical Devices Implanted Type Area Criminal Court Judge Device Identifier Shelf Expiration Date Model / Serial / Lot 28 Mm X 30 Cm Gelweave Gelatin Impregnated Woven Vascular Prosthesis Implanted:Qty: 1 on 12/09/2022 by Filiberto Russo MD at OR [facility] [place] Graft N/A: Aorta [employer] : VASCUTEK [id number] 03/05/2025 [id number] / [id number] 1 / [id number] Suture Steel 6 B&S19 M654g - [id number] Implanted:Qty: 4 on 12/09/2022 by Filiberto Russo MD at OR [facility] [place] N/A: Sternum JNJ : [employer] 09/04/2027 M654G / / SPBBPK Suture Steel 6 B&S19 M654g - [id number] Implanted:Qty: 4 on 12/09/2022 by Filiberto Russo MD at OR [facility] [place] N/A: Sternum JNJ : [employer] 08/05/2027 M654G / / SMBEEL Marker Coronary - [id number] Implanted:Qty: 1 on 12/09/2022 by Filiberto Russo MD at OR [facility] [place] N/A: Heart [employer]ESSEE BI[employer] 09/04/2025 [facility] / / [id number] documented as of this encounter Advance Directives Documents on File Type Date Recorded Patient Newspaper Correspondent Expl anation Advance Directives and Living Will [...] Agen t (per Health Care Power of Wealth Management Director document) Tyler Rosas Adult Child Second Alternate Health Care Agent (per Health Care Power of Wealth Management Director document) Care Teams Software Applications Engineer Relationship Specialty Start Date End Date Jemal Miller III, MD 200 [facility] [address] PCP - General 05/20/1996 documented as of this encounter
--- OUTSIDE RECORDS SUMMARY | 2024-09-12 06:36 | External Medical Summary | Summary of Care ---
Author Name Unknown Organization [facility] Address [address] [place] [address] Phone [phone] Care Team Providers Care Requirements Analyst Name Role Phone Angela MCFARLANE MD, Jemal Li Primary Care Provider [phone] Reason for Visit * Reason Onset Date Comments Blood Pressure Readings 07/14/2024 Encounter Details Date Type Department Care Team (Late st Contact Info) Description 07/14/2024 Telephone Access Center, [place] [address] [facility] *DO NOT REMOVE THIS DEPARTMENT* [place] [address] Services, Scheduling [address] [place] [address] Blood Pressure Readings Allergies No known active allergiesdocumented as of this encounter (statuses as of 07/28/2024) Medications Medication Sig Dispensed Refills Start Date [...] as of this encounter (statuses as of 07/28/2024) Active Problems Problem Noted Date Diagnosed Date [...] -- CPAP 11/2013 PSG -- AHI 12 [facility] BMI 35-39 ISOLATED (SEE ACTUAL BMI) 01/01/2010 Overview: Per Obesity Taxonomy ADVANCE DIRECTIVE INFORMATION 11/26/2005 Overview: No, Advance Directive brochure given to patient. CALCULUS OF KIDNEY-HX 09/09/2002 HTN, goal below 140/90 12/02/2000 documented as of this encounter (statuses as of 07/28/2024) Resolved Problems Problem Noted Date Diagnosed Date Resolved Date Diabetes mellitus 12/14/2022 10/09/2023 Tear of right rotator cuff 11/08/2022 0 11/08/2022 Prediabetes 05/19/2018 12/18/2022 Overview: Per Prediabetes protocol #1 - OBESITY, UNSPECIFIED 010 Overview: Per Obesity Taxonomy documented as of this encounter (statuses as of 07/28/2024) Immunizations Name Administration Dates Next Due Seasonal [...] is advised of such Requests rx to [facility] Pt will repeat labs and 3 day BP log as instructed Lab orders placed in [facility] system Rx pended sent to MD for [...] AM EST Office Visit Nephrology, [facility] [address] [place] [address] Flavia Erwin MD [address] [place] [address] 12/14/2024 10:00 AM EDT Imaging Radiology [facility] [place] [address] 12/24/2024 8:20 AM EDT Office Visit Family Practice [facility] [address] [place] [address] [place] Jemal MCFARLANE MD [address] [facility] [place] [address] 12/30/2024 3:15 PM EDT Office Visit Urology [facility] [address] [place] [id number] Oneil Ball MD 27 [place] [address] 01/27/2025 8:00 AM EDT Office Visit Cardiology, [facility] [address] [place] [address] Wilfrido Figueroa MD [address] [place] [address] Scheduled Orders Name Type Priority Associated Diagnoses [...] this encounter Medical Devices Implanted Type Area Skidder Device Identifier Shelf Expiration Date Model / Serial / Lot 28 Mm X 30 Cm Gelweave Gelatin Impregnated Woven Vascular Prosthesis Implanted:Qty: 1 on 12/09/2022 by Filiberto Russo MD at OR [facility] [place] Graft N/A: Aorta [employer] : VASCUTEK [id number] 03/05/2025 [id number] / [id number] 1 / [id number] Suture Steel 6 B&S19 M654g - [id number] Implanted:Qty: 4 on 12/09/2022 by Filiberto Russo MD at OR [facility] [place] [facility] N/A: Sternum JNJ : [employer] 09/04/2027 M654G / / SPBBPK Suture Steel 6 B&S19 M654g - [id number] Implanted:Qty: 4 on 12/09/2022 by Filiberto Russo MD at OR [facility] N/A: Sternum JNJ : [employer] 08/05/2027 M654G / / SMBEEL Marker Coronary - [id number] Implanted:Qty: 1 on 12/09/2022 by Filiberto Russo MD at OR [facility] N/A: Heart [employer]ESSEE BIOM[employer] 09/04/2025 [facility] / / [id number] documented as of this encounter Visit Diagnoses Diagnosis HTN, goal below 140/90- Primary Unspecified essential hypertension documented in this encounter Advance Directives Documents on File Type Date Recorded Patient Ice Cream Server Expl anation Advance Directives and Living Will [...] Agen trevor (per Health Care Power of Bait Digger document) Tyler Alison Adult Child Second Alternate Health Care Agent (per Health Care Power of Bait Digger document) Care Teams Requirements Analyst Relationship Specialty Start Date End Date Jemal Miller III, MD 200 [facility] [place] [address] PCP - General 05/20/1996 documented as of this encounter
--- OUTSIDE RECORDS SUMMARY | 2024-09-12 06:36 | External Medical Summary | Summary of Care ---
Author Name Unknown Organization [facility] Address [address] [facility] [place] [address] Phone [phone] Care Team Providers Care Toll Gate Keeper Name Role Phone Angela MCFARLANE MD, Jemal Li Primary Care Provider [phone] Encounter Details Date Type Department Care Team (Late st Contact Info) Description 07/26/2024 Result Scan Unspecified Department <No scans attached> Allergies No known active allergiesdocumented as of [...] repair 12/14/2022 Coronary artery disease invo lving [place] coronary artery of [place] heart with angina pectoris 12/09/2022 Impaired fasting glucose 11/27/2022 Nontraumatic tear of right rotator cuff 11/27/19 Ascending aortic aneurysm 11/27/2022 Body mass index (BMI) of 40.0 to 44.9 in adult 0 02/13/2021 Overview: Per Obesity protocol Morbid obesity due to excess calories 04/24/2020 Mild obstructive sleep apnea 11/19/2013 Overview: CPAP 10 cw2013 Titration PSG -- CPAP 10 11/2013 PSG -- AHI 12 [facility] BMI 35-39 ISOLATED (SEE ACTUAL BMI) [...] (15 years old or older) No 12/10/19 23 Cognitive Status Response Date of Assessm ent Because of a physical, menta l, or emotional condition, do you have serious difficulty concentrating, remembering, or making decisions? (5 years old or older) No 12/09/2022 documented as of this encounter Plan of Treatment Upcoming Encounters Date Type Department Care Team (Late st Contact Info) Description 11/09/2024 8:00 AM EST Office Visit Nephrology, [facility] [address] [place] [address] Flavia Erwin MD [address] [place] [address] 12/14/2024 10:00 AM EDT Imaging Radiology [facility] [address] [facility] [place] [address] 12/24/2024 8:20 AM EDT Office Visit Family Practice [facility] [address] [place] [address] Jemal Miller III, MD [address] [place] [address] 12/30/2024 3:15 PM EDT Office Visit Urology [facility] [address] [place] [address] Oneil Ball MD [address] [place] [address] 01/27/2025 8:00 AM EDT Office Visit Cardiology, [facility] [address] [place] [address] Wilfrido Figueroa MD [address] [place] [address] Scheduled Procedures Name Priority Associated Diagnoses Date/Ti [...] this encounter Medical Devices Implanted Type Area Refrigeration Person Device Identifier Shelf Expiration Date Model / Serial / Lot 28 Mm X 30 Cm Gelweave Gelatin Impregnated Woven Vascular Prosthesis Implanted:Qty: 1 on 12/09/2022 by Filiberto Russo MD at OR [facility] [place] Graft N/A: Aorta [employer] : VASCUTEK [id number] 03/05/2025 [id number] / [id number] 1 / [id number] Suture Steel 6 B&S19 M654g - [id number] Implanted:Qty: 4 on 12/09/2022 by Filiberto Russo MD at OR [facility] [place] N/A: Sternum JNJ : [employer] 09/04/2027 M654G / / SPBBPK Suture Steel 6 B&S19 M654g - [id number] Implanted:Qty: 4 on 12/09/2022 by Filiberto Russo MD at OR [facility] [place] N/A: Sternum JNJ : [employer] 08/05/2027 M654G / / SMBEEL Marker Coronary - [id number] Implanted:Qty: 1 on 12/09/2022 by Filiberto Russo MD at OR [facility] [place] N/A: Heart Avante Logix[employer]SEE [employer] 09/04/2025 [facility] / / [id number] documented as of this encounter Procedures Procedure Name Priority Date/Time Associated Diagnosis Comments EKG SCANNED RESULT 07/26/2024 documented in this encounter Results * EKG SCANNED RESULT (07/26/2024) 07/26/2024 No Physician Data Unknown EKG documented in this encounter Advance Directives Documents on File Type Date Recorded Patient Glass Forming Engineer Expl anation Advance Directives and Living Will [...] Name Relationship Healthcare Agent Relationship Communication Cheikh Alison Adult Child Health Care Agetalia trevor (per Health Care Power of International Marketing Specialist document) Tyler Rosas Adult Child Second Alternate Health Care Agent (per Health Care Power of International Marketing Specialist document) Care Teams Toll Gate Keeper Relationship Specialty Start Date End Date Jemal Miller III, MD 200 [place] [address] PCP - General 05/20/1996 documented as of this encounter
[2024-09-13] MEDS ORDERED: ATORVASTATIN 20 MG TAB PO SCH (09:00)
[2024-09-13] MEDS ORDERED: FUROSEMIDE 20 MG TAB PO SCH (09:00)
== END 2024-09-11 10:40 | disposition home or self-care (01) ==
LOC: 3N 06:50 → ASU 06:50